=== PATIENT | male | born 1930 | race Caucasian/White ===

== ENCOUNTER 2019-09-05 17:38 | Inpatient (IN) | payer BC, OTHER ==
--- NOTE | 2019-09-05 18:30 | PDOC ---
History of Present Illness - General Chief Complaint: Altered Mental Status Stated Complaint: ALTERED MENTAL STATUS,FALL Time Seen by Provider: 09/05/19 18:17 History Source: Patient Exam Limitations: No Limitations - History of Present Illness Initial Comments: 09/05/19 21:58 88 yo M with a hx of CAD (s/p CABG, AV replacement, stent), atrial fibrillation (on warfarin), DM, HTN, CVA ("years ago"; unknown residual deficits) and HLD presents to the emergency department with AMS per the daughter. Per the daughter , the patient is normally aware of his surroundings, alert and oriented x3, and conversive. Per the daughter, the patient had an unwitnessed fall on Thursday. The patient remembers the fall and denies LOC, but endorses hitting his head. Per the daughter, the patient has been acting "more spaced out" since the fall, confused to his surroundings, and is unusually more agitated. He was seeing images of his daughter when she wasnt there today. Per the patient, he denies pain. Denies the following: fever, chills, nausea, vomiting, ears/nose/throat pain, chest pain, SOB, abdominal pain, dysuria, hematuria, diarrhea, and leg pain. Allergies: NKDA Past History - Past Medical History Allergies/Adverse Reactions: Allergies Allergy/AdvReac Type Severity Reaction Status Date / Time No Known Drug Allergies Allergy Verified 07/25/13 10:22 Home Medications: Ambulatory Orders Simvastatin [Zocor] 40 mg PO DAILY 03/11/13 Amiodarone HCl [Cordarone -] 200 mg PO DAILY #0 tablet 07/26/13 Aspirin [Aspirin EC] 81 mg PO DAILY #0 tablet.dr 07/26/13 Furosemide [Lasix -] 40 mg PO DAILY #0 tablet 07/26/13 Metoprolol Succinate [Toprol XL -] 100 mg PO DAILY #0 tab.sr.24h 07/26/13 Warfarin Na [Coumadin -] 0 mg PO UTDICT #0 tablet 07/26/13 Anemia: No Asthma: No Cancer: No Cardiac Disorders: Yes (ANGIOPLASTY WITH STENT 8 YRS AGO) CVA: Yes (2002) COPD: No CHF: (aortic valve replacement) Dementia: No Diabetes: No GI Disorders: No Disorders: Yes (renal stones) HTN: Yes Hypercholesterolemia: Yes Liver Disease: No Seizures: No Thyroid Disease: No - Surgical History Abdominal Surgery: Yes (HERNIA REPAIR X 2) Appendectomy: No Cardiac Surgery: Yes (STENT 2004) Cholecystectomy: No Lung Surgery: No Neurologic Surgery: No Orthopedic Surgery: Yes (RUPTURED ACHILLES TENDON, LEFT) - Immunization History Td Vaccination: Yes TDAP Vaccination: Yes Immunization Up to Date: Yes - Psycho Social/Smoking Cessation Hx Smoking Status: Yes Smoking History: Never smoked Years of Tobacco Use: 0 Have you smoked in the past 12 months: No Number of Cigarettes Smoked Daily: 0 If you are a former smoker, when did you quit?: Over 50 years ago Cigars Per Day: 0 Information on smoking cessation initiated: No 'Breaking Loose' booklet given: 12/23/11 Hx Alcohol Use: No Drug/Substance Use Hx: No Substance Use Type: None Hx Substance Use Treatment: No Review of Systems - Review of Systems Able to Perform ROS?: Yes Is the patient limited Setswana proficient: No Constitutional: No: Chills, Diaphoresis, Fever, Weakness HEENTM: No: Eye Pain, Ear Pain, Nose Pain, Throat Pain, Mouth Pain Respiratory: No: Cough, Shortness of Breath, Hemoptysis Cardiac (ROS): No: Chest Pain, Lightheadedness, Palpitations, Syncope ABD/GI: No: Constipated, Diarrhea, Nausea, Rectal Bleeding, Vomiting, Tarry Stools : No: Burning, Dysuria, Hematuria, Incontinence Musculoskeletal: Yes: Back Pain (chronic back pain lower region), Joint Pain ( knees bilaterally; chronic). No: Neck Pain Integumentary: No: Bruising, Erythema, Rash Neurological: No: Headache, Numbness, Tingling, Tremors Psychiatric: No: Change in Appetite Endocrine: No: Unexplained Weight Gain Hematologic/Lymphatic: No: Anemia *Physical Exam - Vital Signs Last Vital Signs Temp Pulse Resp BP Pulse Ox 100.4 F H 94 H 16 137/96 92 L 09/05/19 18:08 09/05/19 17:40 09/05/19 17:40 09/05/19 17:40 09/05/19 17:40 - Physical Exam General Appearance: Yes: Nourished, Appropriately Dressed. No: Apparent Distress, Intoxicated HEENT: positive: EOMI, TROY, Normal Voice, Symmetrical, Pharynx Normal, Hearing Grossly Normal. negative: Pale Conjunctivae, Scleral Icterus (R), Scleral Icterus (L), Muffled/Hoarse voice, Pharyngeal Erythema, Tonsillar Exudate, Tonsillar Erythema, Nasal Congestion, Rhinorrhea, Sinus Tenderness, Excessive drooling Neck: positive: Trachea midline, Supple. negative: Tender, Lymphadenopathy (R) , Lymphadenopathy (L), Tender lateral, Tender midline Respiratory/Chest: positive: Lungs Clear, Normal Breath Sounds. negative: Chest Tender, Respiratory Distress, Accessory Muscle Use, Rhonchi, Stridor, Wheezing Cardiovascular: positive: Regular Rate, S1, S2, Irregularly Irregular. negative : Systolic Murmur Gastrointestinal/Abdominal: positive: Normal Bowel Sounds, Flat, Soft, Other ( hernia present and reducible. also noted surgical scar from CABG. right erythematous rash ). negative: Tender Lymphatic: negative: Adenopathy Musculoskeletal: positive: Normal Inspection. negative: CVA Tenderness, Vertebral Tenderness Extremity: positive: Normal Capillary Refill, Normal Range of Motion, Pelvis Stable. negative: Normal Inspection (2+ pitting edema bilaterally. stable per patient's daughter), Tender Integumentary: positive: Normal Color, Dry, Warm Neurologic: positive: guidance consultant II-XII NML intact, Alert, Motor Strength 5/5. negative: Fully Oriented (oriented to self and place), Normal Mood/Affect ( agitated), EOM Palsy, Sensory Deficit ED Treatment Course - LABORATORY CBC & Chemistry Diagram: 09/05/19 18:32 09/05/19 18:32 Medical Decision Making - Medical Decision Making 09/06/19 00:14 88 yo M with a hx of CAD (s/p CABG, AV replacement, stent), atrial fibrillation (on warfarin), DM, HTN, CVA ("years ago"; unknown residual deficits) and HLD presents to the emergency department with AMS per the daughter Initial vitals: Initial Vital Signs Temp Pulse Resp BP Pulse Ox 99.4 F 94 H 16 137/96 92 L 09/05/19 17:40 09/05/19 17:40 09/05/19 17:40 09/05/19 17:40 09/05/19 17:40 Work up: patient presents with low grade fever with AMS. The patient denies headache and does not have nuchal rigidity. meningitis unlikely. patient denies symptoms. Patient is on warfarin with fall that resulted in head trauma, will need to rule out intracranial bleed. Will order spetic rule out and ascertain source with PNA and UTI as highest likelihoods. Laboratory Tests 09/05/19 09/05/19 09/05/19 18:30 18:30 18:30 WBC RBC Hgb Hct MCV MCH MCHC RDW Plt Count MPV Absolute Neuts (auto) Neutrophils % Lymphocytes % Monocytes % Eosinophils % Basophils % Nucleated RBC % PT with INR 32.60 H INR 2.73 H PTT (Actin FS) 45.5 H VBG pH POC VBG pCO2 POC VBG pO2 VBG HCO3 VBG O2 Sat (Mc) VBG Base Excess Sodium Potassium Chloride Carbon Dioxide Anion Gap BUN Creatinine Est GFR (CKD-EPI)AfAm Est GFR (CKD-EPI)NonAf Random Glucose Lactic Acid 1.6 Calcium Total Bilirubin AST ALT Alkaline Phosphatase Ammonia Creatine Kinase Troponin I Total Protein Albumin Vitamin B12 TSH 1.44 Urine Color Urine Appearance Urine pH Ur Specific [place] Urine Protein Urine Glucose (UA) Urine Ketones Urine Blood Urine Nitrite Urine Bilirubin Urine Urobilinogen Ur Leukocyte Esterase Urine WBC (Auto) Urine RBC (Auto) Urine Casts (Auto) U Epithel Cells (Auto) Urine Bacteria (Auto) 09/05/19 09/05/19 09/05/19 18:32 18:32 18:35 WBC 10.0 RBC 5.32 Hgb 15.4 Hct 46.2 D MCV 86.8 MCH 29.0 MCHC 33.4 RDW 14.3 D Plt Count 178 D MPV 7.6 Absolute Neuts (auto) 8.1 H Neutrophils % 81.2 Lymphocytes % 8.1 D Monocytes % 10.0 D Eosinophils % 0.0 D Basophils % 0.7 Nucleated RBC % 0 PT with INR INR PTT (Actin FS) VBG pH 7.41 POC VBG pCO2 47.0 POC VBG pO2 < 49 H VBG HCO3 29.1 H VBG O2 Sat (Mc) 38.7 L VBG Base Excess 4.0 H Sodium 136 Potassium 4.0 Chloride 101 Carbon Dioxide 29 Anion Gap 7 L BUN 14.0 Creatinine 1.3 Est GFR (CKD-EPI)AfAm 56.86 Est GFR (CKD-EPI)NonAf 49.06 Random Glucose 100 Lactic Acid Calcium 9.1 Total Bilirubin 4.4 H AST 23 ALT 13 Alkaline Phosphatase 105 Ammonia Creatine Kinase 126 Troponin I 0.06 H Total Protein 7.1 Albumin 4.1 Vitamin B12 312 TSH Urine Color Urine Appearance Urine pH Ur Specific [place] Urine Protein Urine Glucose (UA) Urine Ketones Urine Blood Urine Nitrite Urine Bilirubin Urine Urobilinogen Ur Leukocyte Esterase Urine WBC (Auto) Urine RBC (Auto) Urine Casts (Auto) U Epithel Cells (Auto) Urine Bacteria (Auto) 09/05/19 09/05/19 09/05/19 20:16 22:10 22:10 WBC RBC Hgb Hct MCV MCH MCHC RDW Plt Count MPV Absolute Neuts (auto) Neutrophils % Lymphocytes % Monocytes % Eosinophils % Basophils % Nucleated RBC % PT with INR INR PTT (Actin FS) VBG pH POC VBG pCO2 POC VBG pO2 VBG HCO3 VBG O2 Sat (Mc) VBG Base Excess Sodium Potassium Chloride Carbon Dioxide Anion Gap BUN Creatinine Est GFR (CKD-EPI)AfAm Est GFR (CKD-EPI)NonAf Random Glucose Lactic Acid Calcium Total Bilirubin AST ALT Alkaline Phosphatase Ammonia 24.50 Creatine Kinase Troponin I 0.07 H Total Protein Albumin Vitamin B12 TSH Urine Color Yellow Urine Appearance Clear Urine pH 8.0 D Ur Specific [place] 1.014 Urine Protein 1+ H Urine Glucose (UA) Negative Urine Ketones Negative Urine Blood Trace Urine Nitrite Negative Urine Bilirubin Negative Urine Urobilinogen 1.0 Ur Leukocyte Esterase Negative Urine WBC (Auto) 0 Urine RBC (Auto) 11 Urine Casts (Auto) 0 U Epithel Cells (Auto) 0.1 Urine Bacteria (Auto) 0.5 09/05/19 22:10 WBC RBC Hgb Hct MCV MCH MCHC RDW Plt Count MPV Absolute Neuts (auto) Neutrophils % Lymphocytes % Monocytes % Eosinophils % Basophils % Nucleated RBC % PT with INR INR PTT (Actin FS) VBG pH POC VBG pCO2 POC VBG pO2 VBG HCO3 VBG O2 Sat (Mc) VBG Base Excess Sodium Potassium Chloride Carbon Dioxide Anion Gap BUN Creatinine Est GFR (CKD-EPI)AfAm Est GFR (CKD-EPI)NonAf Random Glucose Lactic Acid 1.3 Calcium Total Bilirubin AST ALT Alkaline Phosphatase Ammonia Creatine Kinase Troponin I Total Protein Albumin Vitamin B12 TSH Urine Color Urine Appearance Urine pH Ur Specific [place] Urine Protein Urine Glucose (UA) Urine Ketones Urine Blood Urine Nitrite Urine Bilirubin Urine Urobilinogen Ur Leukocyte Esterase Urine WBC (Auto) Urine RBC (Auto) Urine Casts (Auto) U Epithel Cells (Auto) Urine Bacteria (Auto) Patient's troponin is positive with repeat with slight rise (0.06-->0.07) EKG shows atrial fibrillation with TW flattening in III. No ST elevation or depression noted Patient's UA and CXR within normal limits. CT head and cervical spine negative for acute process Patient has a remote history of abdomen and pelvis CT showing heterogenity with possible lesions on liver; ammonia was obtained and was within normal limits. Vitamin B12 within normal limits. Patient will have an abdomen and pelvis due to increase in total bilirubin s/p cholecystectomy. Will rule out choledocholithiasis with possible infection throughout the biliary tree ( cholangitis). Patient was signed out to Dr. Jacques for further management. Discharge - Discharge Information Problems reviewed: Yes Clinical Impression/Diagnosis: AMS (altered mental status) - Follow up/Referral Referrals: Roxanna Moore MD [Primary Care Provider] - - Patient Discharge Instructions - Post Discharge Activity
--- NOTE | 2019-09-05 18:56 | PDOC ---
Documentation entered by Anai Saenz SCRIBE, acting as scribe for Peri Ocampo MD. Peri Ocampo MD: This documentation has been prepared by the Letty back Nirvannie, SCRIBE, under my direction and personally reviewed by me in its entirety. I confirm that the documentation accurately reflects all work, treatment, procedures, and medical decision making performed by me. Attending Attestation - Resident Resident Name: Obi Jose - ED Attending Attestation I have performed the following: I have examined & evaluated the patient, The case was reviewed & discussed with the resident (a), I agree w/resident's findings & plan, Exceptions are as noted - HPI HPI: 09/05/19 18:53 88-year-old male brought in by daughter for altered mental status. he fell on Thursday and has become increasingly confused since then. He does take Coumadin. - Physicial Exam PE: 09/05/19 19:04 Head is normocephalic atraumatic, there is no appreciable lacerations or abrasions or hematomas noted Face no abrasions or lacerations Neck patient does not complain of any midline cervical tenderness upon palpation Lungs clear to auscultation bilaterally CVS regular rate rhythm S1-S2 Abdomen soft nontender,There is a reducible hernia Extremities +1 pitting edema Skin no vesicles, no abscesses But there is a fungal appearing rash on the right lower quadrant Neuro he has 5 out of 5 bilateral motor strength patient is a very poor historian, confused but he is not somnolent - Medical Decision Making 09/05/19 19:41 88-year-old male who fell on Thursday and has been becoming more confused according to his daughter He has no obvious external head trauma He does take Coumadin Concern for TBI, subdural hemorrhage Labs including INR, CAT scan of the head EKG CBC comp, urine 09/05/19 22:30 CAT scan of the head does not show any acute intracranial pathology Troponin is 0.06 CBC is unremarkable Chemistries are unremarkable ,exception of his t bilirubin which is 4.4 His INR is 2,73 09/05/19 22:30 09/05/19 23:59 09/06/19 01:18 Daughter is concerned because this person is talking about seeing people that are not there, having visual hallucinations will admit for continued evaluation
[2019-09-05 19:06] LABS: VENOUS PH 7.41 (7.31-7.41)
[2019-09-05 19:13] LABS: BASO % 0.7 % (0-2.0); HEMATOCRIT 46.2 % (35.4-49); HEMOGLOBIN 15.4 GM/dL (11.7-16.9); LYMPH % 8.1 % (8-40); MCHC 33.4 g/dl (32.0-35.9); MEAN CELL VOLUME 86.8 fl (80-96); MEAN PLT VOLUME 7.6 fl (7.5-11.1); NEUT % 81.2 % (42.8-82.8); PLATELET COUNT 178 K/MM3 (134-434); RBC 5.32 M/mm3 (4.00-5.60); RDW 14.3 % (11.9-15.9)
[2019-09-05 19:35] LABS: VENOUS PO2 < 49 mmHg (28-48)
[2019-09-05 19:49] LABS: INR 2.73 (0.83-1.09); PROTHROMBIN TIME (PATIENT) 32.6 SEC (9.7-13.0)
[2019-09-05 19:52] LABS: ACTIVATED PTT 45.5 SECONDS (25.2-36.5)
[2019-09-05 20:15] LABS: ALBUMIN 4.1 g/dl (3.4-5.0); BILIRUBIN,TOTAL 4.4 mg/dL (0.2-1); CALCIUM 9.1 mg/dL (8.5-10.1); CREATININE 1.3 mg/dL (0.55-1.3); TOT PROT 7.1 g/dl (6.4-8.2)
[2019-09-05 21:02] LABS: EPI CELLS 0.1 /HPF (0-5/HPF); HYALINE CASTS 0 /lpf (0-8); URINE APPEARANCE CLEAR; URINE BACTERIA 0.5 /hpf (NEGATIVE); URINE BILIRUBIN NEGATIVE (NEGATIVE); URINE COLOR YELLOW; URINE GLUCOSE (UA) NEGATIVE (NEGATIVE); URINE KETONE NEGATIVE (NEGATIVE); URINE LEUK ESTERASE NEGATIVE (NEGATIVE); URINE NITRITE NEGATIVE (NEGATIVE); URINE PROTEIN 1+ (NEGATIVE); URINE RBC 11 /hpf (0-4); URINE WBC 0 /hpf (0-5)
[2019-09-05] MEDS ORDERED: oxyCODONE HCL 5 MG TABLET PO ONE (22:05)
[2019-09-05] MEDS ORDERED: ATORVASTATIN CA 40 MG TABLET (FP) PO ONE (22:05)
[2019-09-05] MEDS ORDERED: WARFARIN NA 5 MG TABLET (UD) PO ONE (22:05)
[2019-09-05] MEDS ORDERED: oxyCODONE HCL 5 MG TABLET ONE (22:09)
[2019-09-05] MEDS ORDERED: WARFARIN NA 5 MG TABLET (UD) ONE (22:09)
[2019-09-05] MEDS ORDERED: ATORVASTATIN CA 40 MG TABLET (FP) ONE (22:10)
--- NOTE | 2019-09-06 00:09 | PDOC ---
*Physical Exam - Vital Signs Last Vital Signs Temp Pulse Resp BP Pulse Ox 98.5 F 100 H 14 145/88 95 09/05/19 19:10 09/05/19 19:10 09/05/19 19:10 09/05/19 19:10 09/05/19 19:10 ED Treatment Course - LABORATORY CBC & Chemistry Diagram: 09/09/19 06:55 09/09/19 06:55 - ADDITIONAL ORDERS Additional order review: Laboratory Results 09/05/19 09/05/19 09/05/19 22:10 22:10 22:10 PT with INR INR PTT (Actin FS) VBG pH POC VBG pCO2 POC VBG pO2 VBG HCO3 VBG O2 Sat (Mc) VBG Base Excess Sodium Potassium Chloride Carbon Dioxide Anion Gap BUN Creatinine Est GFR (CKD-EPI)AfAm Est GFR (CKD-EPI)NonAf Random Glucose Lactic Acid 1.3 Calcium Total Bilirubin AST ALT Alkaline Phosphatase Ammonia 24.50 Creatine Kinase Troponin I 0.07 H Total Protein Albumin Vitamin B12 TSH Urine Color Urine Appearance Urine pH Ur Specific [place] Urine Protein Urine Glucose (UA) Urine Ketones Urine Blood Urine Nitrite Urine Bilirubin Urine Urobilinogen Ur Leukocyte Esterase Urine WBC (Auto) Urine RBC (Auto) Urine Casts (Auto) U Epithel Cells (Auto) Urine Bacteria (Auto) 09/05/19 09/05/19 09/05/19 20:16 18:35 18:32 PT with INR INR PTT (Actin FS) VBG pH 7.41 POC VBG pCO2 47.0 POC VBG pO2 < 49 H VBG HCO3 29.1 H VBG O2 Sat (Mc) 38.7 L VBG Base Excess 4.0 H Sodium 136 Potassium 4.0 Chloride 101 Carbon Dioxide 29 Anion Gap 7 L BUN 14.0 Creatinine 1.3 Est GFR (CKD-EPI)AfAm 56.86 Est GFR (CKD-EPI)NonAf 49.06 Random Glucose 100 Lactic Acid Calcium 9.1 Total Bilirubin 4.4 H AST 23 ALT 13 Alkaline Phosphatase 105 Ammonia Creatine Kinase 126 Troponin I 0.06 H Total Protein 7.1 Albumin 4.1 Vitamin B12 312 TSH Urine Color Yellow Urine Appearance Clear Urine pH 8.0 D Ur Specific [place] 1.014 Urine Protein 1+ H Urine Glucose (UA) Negative Urine Ketones Negative Urine Blood Trace Urine Nitrite Negative Urine Bilirubin Negative Urine Urobilinogen 1.0 Ur Leukocyte Esterase Negative Urine WBC (Auto) 0 Urine RBC (Auto) 11 Urine Casts (Auto) 0 U Epithel Cells (Auto) 0.1 Urine Bacteria (Auto) 0.5 09/05/19 09/05/19 09/05/19 18:30 18:30 18:30 PT with INR 32.60 H INR 2.73 H PTT (Actin FS) 45.5 H VBG pH POC VBG pCO2 POC VBG pO2 VBG HCO3 VBG O2 Sat (Mc) VBG Base Excess Sodium Potassium Chloride Carbon Dioxide Anion Gap BUN Creatinine Est GFR (CKD-EPI)AfAm Est GFR (CKD-EPI)NonAf Random Glucose Lactic Acid 1.6 Calcium Total Bilirubin AST ALT Alkaline Phosphatase Ammonia Creatine Kinase Troponin I Total Protein Albumin Vitamin B12 TSH 1.44 Urine Color Urine Appearance Urine pH Ur Specific [place] Urine Protein Urine Glucose (UA) Urine Ketones Urine Blood Urine Nitrite Urine Bilirubin Urine Urobilinogen Ur Leukocyte Esterase Urine WBC (Auto) Urine RBC (Auto) Urine Casts (Auto) U Epithel Cells (Auto) Urine Bacteria (Auto) 09/05/19 18:32 RBC 5.32 MCV 86.8 MCHC 33.4 RDW 14.3 D MPV 7.6 Neutrophils % 81.2 Lymphocytes % 8.1 D Monocytes % 10.0 D Eosinophils % 0.0 D Basophils % 0.7 - Medications Given in the ED: ED Medications Discontinued Medications Generic Name Dose Route Start Last Admin Trade Name Brunoq PRN Reason Stop Dose Admin Atorvastatin Calcium 40 mg 09/05/19 22:05 09/05/19 22:17 Lipitor - PO 09/05/19 22:06 40 mg ONCE ONE Administration Oxycodone HCl 5 mg 09/05/19 22:05 09/05/19 22:17 Roxicodone - PO 09/05/19 22:06 5 mg ONCE ONE Administration Warfarin Sodium 5 mg 09/05/19 22:05 09/05/19 22:17 Coumadin - PO 09/05/19 22:06 5 mg NOW ONE Administration Medical Decision Making - Medical Decision Making 09/06/19 00:[address] Jose: 88 yo M with a hx of CAD (s/p CABG, AV replacement, stent), atrial fibrillation (on warfarin), DM, HTN, CVA ("years ago"; unknown residual deficits) and HLD presents to the emergency department with AMS per the daughter. Unwitnessed fall on Thursday. - CT head neg - Labs showing elevated TBili [] f/u CT A/P IOC read [] admit for AMS 09/06/19 00:58 CT A/P IOC: FINDINGS: Lower thorax: Mild eventration of the left hemidiaphragm. Subsegmental atelectasis in both lower lobes. Coronary artery calcifications. Liver and biliary tree: No suspicious hepatic lesions. Normal contour of the liver. Gallbladder: Prior cholecystectomy Spleen: Normal Pancreas: Normal Adrenal glands: Normal Kidneys and ureters: No hydronephrosis or urolithiasis. Urinary Bladder: Unremarkable Gastrointestinal tract: No bowel wall thickening or evidence of obstruction. Small hiatal hernia Peritoneal cavity: No free fluid. Reproductive Organs: Unremarkable Vasculature: The aorta and proximal branch arteries are patent.Atherosclerotic vascular calcification. Abdominal aortic aneurysm measuring 3.6 cm Lymph nodes: Enlarged bilateral iliac chain lymph nodes measuring up to 1 cm in short axis dimension; these are nonspecific. Mildly enlarged bilateral pelvic sidewall lymph nodes measuring up to 7 mm in short axis dimension. Abdominal wall: Multiple ventral hernias 2 of which contain segments of bowel. No evidence of strangulation or obstruction. Musculoskeletal: No acute fracture. Severe degenerative changes in the lumbar spine. Grade 1 anterolisthesis of L4 on L5. IMPRESSION: No evidence of acute infectious or inflammatory process in the abdomen or pelvis. Abdominal aortic aneurysm measuring 3.6 cm Enlarged bilateral iliac chain and pelvic sidewall lymph nodes. These are nonspecific. Recommend correlation with serum PSA and digital rectal exam. THIS DOCUMENT HAS BEEN ELECTRONICALLY SIGNED Twan Whitehead MD 09/06/2019 00:48 EST 09/06/19 01:04 admit // admitted Discharge - Discharge Information Problems reviewed: Yes Clinical Impression/Diagnosis: AMS (altered mental status) Qualifiers: Altered mental status type: unspecified Qualified Code(s): R41.82 - Altered mental status, unspecified Condition: Improved Disposition: HOME - Admission Yes - Follow up/Referral - Patient Discharge Instructions - Post Discharge Activity
--- NOTE | 2019-09-06 01:27 | PN ---
Teaching Attending Note Name of Resident: Mehrdad Go ATTENDING PHYSICIAN STATEMENT I saw and evaluated the patient. I reviewed the resident's note and discussed the case with the resident. I agree with the resident's findings and plan as documented. SUBJECTIVE: 88 yo M with a hx of CAD, s/p CABG, AVR, afib (on warfarin), DM, HTN, CVA presents with AMS as per the daughter. Per the daughter, the patient is normally aware of his surroundings, alert and oriented x3, and Able to converse and give a good history. Patient says he has had multiple falls in the preceding weeks with most recent fall on 09/03/2018. The patient remembers the fall, possible trauma to head, denied LOC. Patient reports that he has bovine aortic valve replacement. Last Vital Signs Temp Pulse Resp BP Pulse Ox 98.5 F 100 H 14 145/88 95 09/05/19 19:10 09/05/19 19:10 09/05/19 19:10 09/05/19 19:10 09/05/19 19:10 GENERAL: Well developed, well nourished. Awake and alert. No acute distress. HEENT: Normocephalic, atraumatic. PERRLA, EOMI. No conjunctival pallor. Sclera are non- icteric. Moist mucous membranes. Oropharynx is clear. NECK: Supple. Full ROM. No JVD. Carotid pulses 2+ and symmetric, without bruits. No thyromegaly. No lymphadenopathy. CARDIOVASCULAR: Regular rate and rhythm. No murmurs, rubs, or gallops. Distal pulses are 2+ and symmetric. PULMONARY: No evidence of respiratory distress. Lungs clear to auscultation bilaterally. No wheezing, rales or rhonchi. ABDOMINAL: Soft. Non-tender. Non-distended. No rebound or guarding. No organomegaly. Normoactive bowel sounds. Reducible ventral abdominal hernia appreciated MUSCULOSKELETAL Normal range of motion at all joints. No bony deformities or tenderness. No CVA tenderness. EXTREMITIES: No cyanosis. No clubbing. No edema. No calf tenderness. SKIN: Warm and dry. Normal capillary refill. No rashes. No jaundice. NEUROLOGICAL: Alert, awake, appropriate. Cranial nerves 2-12 intact. No deficits to light touch and temperature in face, upper extremities and lower extremities. No motor deficits in the in face, upper extremities and lower extremities. Normoreflexic in the upper and lower extremities. Normal speech. Toes are down- going bilaterally. Gait is normal without ataxia. PSYCHIATRIC: Cooperative. Good eye contact. Appropriate mood and affect. Abnormal Lab Results 09/05/19 09/05/19 09/05/19 18:30 18:32 18:32 Absolute Neuts (auto) 8.1 H PT with INR 32.60 H INR 2.73 H PTT (Actin FS) 45.5 H POC VBG pO2 VBG HCO3 VBG O2 Sat (Mc) VBG Base Excess Anion Gap 7 L Total Bilirubin 4.4 H Troponin I 0.06 H Urine Protein 09/05/19 09/05/19 09/05/19 18:35 20:16 22:10 Absolute Neuts (auto) PT with INR INR PTT (Actin FS) POC VBG pO2 < 49 H VBG HCO3 29.1 H VBG O2 Sat (Mc) 38.7 L VBG Base Excess 4.0 H Anion Gap Total Bilirubin Troponin I 0.07 H Urine Protein 1+ H Imaging studies reviewed CT head and cervical spine negative for acute process Abdomen pelvis CTAbdominal aortic aneurysm measuring 3.6 cm ASSESSMENT AND PLAN: #S/p fall, ams-r/o subdural hematoma. One-time fever of 100.4 Fahrenheit noted in the emergency room. At this time low suspicious of meningitis however if persistent fevers and altered mentation would consider to do lumbar puncture to rule out meningitis or encephalitis. med/surg neuro checks fall precautions TSH, vitamin B12, RPR Fall precautions, bed rest, physical therapy evaluation would repeat head ct in 24hrs to r/o subdural hematoma #Elevated T bilino abdominal pain, uncertain etiology Send fractionated bilirubin with next chemistry #Fever, tachycardia Flu swab Send blood cultures #CAD status post CABG Statin Beta-shaan #Troponinemiasuspect demand ischemia Trend troponin #Diabetes mellitus NovoLog sliding scale, basal insulin, A1c, diabetic diet #A. fib on anticoagulationINR noted to be therapeutic #Aortic valve replacementuncertain if bioprosthetic or mechanical Obtain medical records from eeg technologist in morning #Hypertension Salt restriction #Abdominal aortic aneurysm3.7 cm Would follow-up in vascular clinic as an outpatient
--- NOTE | 2019-09-06 02:11 | HP ---
CHIEF COMPLAINT: fall PCP: Dr. Roxanna Moore HISTORY OF PRESENT ILLNESS: Migel Pantoja is an 88 year old male with a past medical history of CAD (s/p CABG, aortic valve replacement ?type, stent), afib (on coumadin), DM, HTN, CVA, HLD, spinal stenosis, who had multiple recent falls at home and brought to the ED by his daughter for further evaluation. As per ED who obtained history from daughter the patient was noted to have altered mental status where patient was more not alert, agitated, and having some hallucinations and was having increased amounts of falls including head hits. On exam, the patient was alert and oriented x3 and recalled the events of his most recent fall where he stated he felt lightheaded, felt his legs give out and fell hitting his head. He denied loss of consciousness or prodromal events such as palpitations, chest pain, shortness of breath, nausea, visual changes. Denied recent illnesses, sick contacts, or travel. On interview, denied abd pain, nausea, vomiting, chest pain, shortness of breath, fever, chills, dizziness, lightheadedness, numbness, tingling, focal weakness, cough. Endorsed constipation and chronic back pain. On subsequent examination, patient had episode of repeated questioning about whether he will receive pain medication. ER course was notable for: (1) Tmax: 100.4 (2) INR 2.73, T bili 4.4, TSH 1.44 (3) CT abd/pelvis No evidence of acute infectious or inflammatory process in the abdomen or pelvis. Abdominal aortic aneurysm measuring 3.6 cm Enlarged bilateral iliac chain and pelvic sidewall lymph nodes. These are nonspecific. Recommend correlation with serum PSA and digital rectal exam. 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 Allergies No Known Drug Allergies Allergy (Verified 07/25/13 10:22) HOME MEDICATIONS: Home Medications Medication Instructions Recorded Simvastatin [Zocor] 40 mg PO DAILY 07/19/13 Amiodarone HCl [Cordarone -] 200 mg PO DAILY #0 tablet 07/26/13 Aspirin [Aspirin EC] 81 mg PO DAILY #0 tablet.dr 07/26/13 Furosemide [Lasix -] 40 mg PO DAILY #0 tablet 07/26/13 Metoprolol Succinate [Toprol XL -] 100 mg PO DAILY #0 tab.sr.24h 07/26/13 Warfarin Na [Coumadin -] 0 mg PO UTDICT #0 tablet 07/26/13 REVIEW OF SYSTEMS CONSTITUTIONAL: Absent: fever, chills, diaphoresis, generalized weakness, malaise, loss of appetite, weight change HEENT: Absent: rhinorrhea, nasal congestion, throat pain, throat swelling, difficulty swallowing, visual changes CARDIOVASCULAR: Absent: chest pain, syncope, palpitations, irregular heart rate, lightheadedness , peripheral edema RESPIRATORY: Absent: cough, shortness of breath, dyspnea with exertion, orthopnea, wheezing, GASTROINTESTINAL: constipation Absent: abdominal pain, abdominal distension, nausea, vomiting, diarrhea, melena, hematochezia GENITOURINARY: Absent: dysuria, frequency, urgency, hesitancy, hematuria, flank pain, MUSCULOSKELETAL: back pain Absent: myalgia, arthralgia, joint swelling, neck pain SKIN: Absent: rash, itching, pallor HEMATOLOGIC/IMMUNOLOGIC: Absent: easy bleeding, easy bruising, lymphadenopathy, frequent infections ENDOCRINE: Absent: unexplained weight gain, unexplained weight loss, heat intolerance, cold intolerance NEUROLOGIC: unsteady gait Absent: headache, focal weakness or paresthesias, dizziness, seizure, mental status changes, PSYCHIATRIC: Absent: anxiety, depression, suicidal or homicidal ideation, hallucinations. PHYSICAL EXAMINATION Vital Signs - 24 hr 09/05/19 09/05/19 09/05/19 17:40 18:08 19:10 Temperature 99.4 F 100.4 F H 98.5 F Pulse Rate 94 H Pulse Rate [ 100 H Right Radial] Respiratory 16 14 Rate Blood Pressure 137/96 Blood Pressure 145/88 [Left Arm] O2 Sat by Pulse 92 L 95 Oximetry (%) GENERAL: Awake, alert, and fully oriented, in no acute distress. HEAD: Normal with no signs of trauma. EYES: Pupils equal, round and reactive to light, extraocular movements intact, sclera anicteric, conjunctiva clear. EARS, NOSE, THROAT:Oropharynx clear without exudates. Moist mucous membranes. NECK: Normal range of motion, supple without lymphadenopathy, JVD. LUNGS: Breath sounds equal, clear to auscultation bilaterally. No wheezes, and no crackles. No accessory muscle use. HEART: Normal rate and irregular rhythm, normal S1 and S2 without murmur, rub. ABDOMEN: Soft, nontender, not distended, normoactive bowel sounds, no guarding, no rebound, no masses. MUSCULOSKELETAL: Difficulty sitting up secondary to pain UPPER EXTREMITIES: 2+ pulses, warm, well-perfused. No cyanosis. No clubbing. No peripheral edema. LOWER EXTREMITIES: 2+ pulses, warm, well-perfused. No calf tenderness. No peripheral edema. NEUROLOGICAL: Cranial nerves II-XII intact. 5/5 muscle strength upper and lower extremities bilaterally. Sensation intact to gross touch bilaterally. PSYCHIATRIC: Cooperative. Good eye contact. SKIN: Warm, dry, normal turgor, no rashes or lesions noted, normal capillary refill. Laboratory Results - last 24 hr 09/05/19 09/05/19 09/05/19 18:30 18:30 18:30 WBC RBC Hgb Hct MCV MCH MCHC RDW Plt Count MPV Absolute Neuts (auto) Neutrophils % Lymphocytes % Monocytes % Eosinophils % Basophils % Nucleated RBC % PT with INR 32.60 H INR 2.73 H PTT (Actin FS) 45.5 H VBG pH POC VBG pCO2 POC VBG pO2 VBG HCO3 VBG O2 Sat (Mc) VBG Base Excess Sodium Potassium Chloride Carbon Dioxide Anion Gap BUN Creatinine Est GFR (CKD-EPI)AfAm Est GFR (CKD-EPI)NonAf Random Glucose Lactic Acid 1.6 Calcium Total Bilirubin AST ALT Alkaline Phosphatase Ammonia Creatine Kinase Troponin I Total Protein Albumin Vitamin B12 TSH 1.44 Urine Color Urine Appearance Urine pH Ur Specific [place] Urine Protein Urine Glucose (UA) Urine Ketones Urine Blood Urine Nitrite Urine Bilirubin Urine Urobilinogen Ur Leukocyte Esterase Urine WBC (Auto) Urine RBC (Auto) Urine Casts (Auto) U Epithel Cells (Auto) Urine Bacteria (Auto) 09/05/19 09/05/19 09/05/19 18:32 18:32 18:35 WBC 10.0 RBC 5.32 Hgb 15.4 Hct 46.2 D MCV 86.8 MCH 29.0 MCHC 33.4 RDW 14.3 D Plt Count 178 D MPV 7.6 Absolute Neuts (auto) 8.1 H Neutrophils % 81.2 Lymphocytes % 8.1 D Monocytes % 10.0 D Eosinophils % 0.0 D Basophils % 0.7 Nucleated RBC % 0 PT with INR INR PTT (Actin FS) VBG pH 7.41 POC VBG pCO2 47.0 POC VBG pO2 < 49 H VBG HCO3 29.1 H VBG O2 Sat (Mc) 38.7 L VBG Base Excess 4.0 H Sodium 136 Potassium 4.0 Chloride 101 Carbon Dioxide 29 Anion Gap 7 L BUN 14.0 Creatinine 1.3 Est GFR (CKD-EPI)AfAm 56.86 Est GFR (CKD-EPI)NonAf 49.06 Random Glucose 100 Lactic Acid Calcium 9.1 Total Bilirubin 4.4 H AST 23 ALT 13 Alkaline Phosphatase 105 Ammonia Creatine Kinase 126 Troponin I 0.06 H Total Protein 7.1 Albumin 4.1 Vitamin B12 312 TSH Urine Color Urine Appearance Urine pH Ur Specific [place] Urine Protein Urine Glucose (UA) Urine Ketones Urine Blood Urine Nitrite Urine Bilirubin Urine Urobilinogen Ur Leukocyte Esterase Urine WBC (Auto) Urine RBC (Auto) Urine Casts (Auto) U Epithel Cells (Auto) Urine Bacteria (Auto) 09/05/19 09/05/19 09/05/19 20:16 22:10 22:10 WBC RBC Hgb Hct MCV MCH MCHC RDW Plt Count MPV Absolute Neuts (auto) Neutrophils % Lymphocytes % Monocytes % Eosinophils % Basophils % Nucleated RBC % PT with INR INR PTT (Actin FS) VBG pH POC VBG pCO2 POC VBG pO2 VBG HCO3 VBG O2 Sat (Mc) VBG Base Excess Sodium Potassium Chloride Carbon Dioxide Anion Gap BUN Creatinine Est GFR (CKD-EPI)AfAm Est GFR (CKD-EPI)NonAf Random Glucose Lactic Acid Calcium Total Bilirubin AST ALT Alkaline Phosphatase Ammonia 24.50 Creatine Kinase Troponin I 0.07 H Total Protein Albumin Vitamin B12 TSH Urine Color Yellow Urine Appearance Clear Urine pH 8.0 D Ur Specific [place] 1.014 Urine Protein 1+ H Urine Glucose (UA) Negative Urine Ketones Negative Urine Blood Trace Urine Nitrite Negative Urine Bilirubin Negative Urine Urobilinogen 1.0 Ur Leukocyte Esterase Negative Urine WBC (Auto) 0 Urine RBC (Auto) 11 Urine Casts (Auto) 0 U Epithel Cells (Auto) 0.1 Urine Bacteria (Auto) 0.5 09/05/19 22:10 WBC RBC Hgb Hct MCV MCH MCHC RDW Plt Count MPV Absolute Neuts (auto) Neutrophils % Lymphocytes % Monocytes % Eosinophils % Basophils % Nucleated RBC % PT with INR INR PTT (Actin FS) VBG pH POC VBG pCO2 POC VBG pO2 VBG HCO3 VBG O2 Sat (Mc) VBG Base Excess Sodium Potassium Chloride Carbon Dioxide Anion Gap BUN Creatinine Est GFR (CKD-EPI)AfAm Est GFR (CKD-EPI)NonAf Random Glucose Lactic Acid 1.3 Calcium Total Bilirubin AST ALT Alkaline Phosphatase Ammonia Creatine Kinase Troponin I Total Protein Albumin Vitamin B12 TSH Urine Color Urine Appearance Urine pH Ur Specific [place] Urine Protein Urine Glucose (UA) Urine Ketones Urine Blood Urine Nitrite Urine Bilirubin Urine Urobilinogen Ur Leukocyte Esterase Urine WBC (Auto) Urine RBC (Auto) Urine Casts (Auto) U Epithel Cells (Auto) Urine Bacteria (Auto) EKG--> afib, T wave abnormalities in inferior leads, no ST segment changes, QTc 405 ASSESSMENT/PLAN: Migel Pantoja is an 88 year old male with a past medical history of CAD (s/p CABG, aortic valve replacement ?type, stent), afib (on coumadin), DM, HTN, CVA, HLD, spinal stenosis admitted for multiple falls. Multiple falls with head hit/?AMS - unclear etiology, no evidence of acute infection, patient currently AOx3 but on subsequent exam had questionable waxing and waning - head CT as above, can consider repeat head CT after 24 hours due to patient being on coumadin - on tramadol 50 q6h prn at home for pain, may be contributing to falls - orthostatics ordered - Utox ordered - RPR, B12 - TSH 1.44 - physical therapy - fall risk precautions - bedrest - neurochecks Fever - no clear source of infection - Blood/urine cultures - Abd/pelvis CT as above - UA negative - CXR without infiltrates - flu swab ordered - if has repeated fevers, low threshold to start antibiotics, and consider LP Elevated Bilirubin - abd/pelvis CT as above - repeat bilirubin with direct ordered - cholecystectomy many years prior Elevated tropnonins - no signs of ACS, no change in EKG from previous on record EKG - previous EKG noting afib, age indeterminate inferior infarct, nonspecific T wave changes in inferior and lateral leads - continue to trend troponins Afib - continue home coumadin - continue home metoprolol Hx of Aortic valve replacement - unclear if mechanical or bovine, will need records from chartered wealth manager to determine optimal coumadin dosing AAA noted on CT scan - will need outpatient vascular surgery follow up DM - BGM ACHS - ISS CKD - at baseline CRE - avoid nephrotoxins HTN - resume home metoprolol HLD - resume home Lipitor DVT PPx - on home coumadin FEN - no standing fluids - continue to monitor electrolytes and replete as necessary - sodium/diabetic diet Dispo - Admit to Med-surg - medications reconciled Family Medical History Family History: Denies Visit type - Emergency Visit Emergency Visit: Yes ED Registration Date: 09/05/19 Care time: The patient presented to the Emergency Department on the above date and was hospitalized for further evaluation of their emergent condition. - New Patient This patient is new to me today: Yes Date on this admission: 09/06/19 - Critical Care Critical Care patient: No
[2019-09-06] MEDS ORDERED: ACETAMINOPHEN 325 MG TABLET (FP) PO PRN (03:15)
[2019-09-06] MEDS: INSULIN SLIDING SCALE (NOVOLOG) 1 VIAL SQ SCH ×4 (07:04→22:27)
[2019-09-06 07:45] LABS: BASO % 0.6 % (0-2.0); EOS % 0.2 % (0-4.5); HEMATOCRIT 41.9 % (35.4-49); HEMOGLOBIN 14.1 GM/dL (11.7-16.9); LYMPH % 11.3 % (8-40); MCH 29.1 pg (25.7-33.7); MCHC 33.8 g/dl (32.0-35.9); MEAN CELL VOLUME 86.3 fl (80-96); MEAN PLT VOLUME 7.4 fl (7.5-11.1); MONO % 8.6 % (3.8-10.2); NEUT % 79.3 % (42.8-82.8); PLATELET COUNT 165 K/MM3 (134-434); RBC 4.86 M/mm3 (4.00-5.60); RDW 14.1 % (11.9-15.9); WHITE BLOOD COUNT 8.5 K/mm3 (4.0-10.0)
[2019-09-06 07:59] LABS: INR 2.93 (0.83-1.09)
[2019-09-06 08:26] LABS: ALBUMIN 3.6 g/dl (3.4-5.0); BILIRUBIN,TOTAL 4.3 mg/dL (0.2-1); CALCIUM 8.8 mg/dL (8.5-10.1); CREATININE 1.2 mg/dL (0.55-1.3); MAGNESIUM 2.2 mg/dL (1.8-2.4); PHOSPHOROUS 2.6 mg/dL (2.5-4.9); POTASSIUM 3.6 mmol/L (3.5-5.1); TOT PROT 6.5 g/dl (6.4-8.2)
--- NOTE | 2019-09-06 08:27 | HOSP ---
Subjective - Review of Symptoms Events since last encounter: Seen and examined in the ED. Pt requesting to leave the hospital. Becoming very agitated Musculoskeletal: Yes: Back Pain, Muscle Weakness Neurological: Yes: Confusion Physical Examination Vital Signs: Vital Signs Temperature 99.8 F H 09/06/19 07:10 Pulse Rate 87 09/06/19 07:10 Respiratory Rate 15 09/06/19 07:10 Blood Pressure 140/85 09/06/19 07:10 O2 Sat by Pulse Oximetry (%) 96 09/06/19 07:10 Constitutional: Yes: Well Nourished, No Distress, Calm Eyes: Yes: WNL, Conjunctiva Clear, EOM Intact HENT: Yes: WNL, Atraumatic, Normocephalic Neck: Yes: WNL, Supple, Trachea Midline Cardiovascular: Yes: WNL, Regular Rate and Rhythm Respiratory: Yes: WNL, Regular, CTA Bilaterally Gastrointestinal: Yes: WNL, Normal Bowel Sounds ...Rectal Exam: Yes: Deferred Renal/: Yes: WNL Breast(s): Yes: WNL Musculoskeletal: Yes: Muscle Weakness Extremities: Yes: WNL Edema: No Peripheral Pulses WNL: Yes Peripheral Pulses: Left Radial: 2+, Right Radial: 2+, Left Doralis Pedis: 2+, Right Dorsalis Pedis: 2+, Left Femoral: 2+, Right Femoral: 2+ Integumentary: Yes: WNL Neurological: Yes: Alert, Unsteady Gait, Weakness (to LE) ...Motor Strength: LLE, RLE (weakness) Psychiatric: Yes: Agitated Labs: CBC, BMP 09/06/19 07:04 09/06/19 07:04 Hospitalist Encounter Assessment: Pt with history of frequent falls. HCT negative. Pending PT evaluation. Spoke with daughter at bedside and states she has been caring for pt for 10 years and has been increasingly more difficult over past year. Requesting supportive care at home. Pt very agitated, begging duaghter to take him home. Neurogly consultation and NV evaluation requested. Given pt is on coumadin and had increased agitation and falls it is unsafe to discharge to home. SW assistance requested for home care Critical Care Total Critical Care Time (in minutes): 45 Critical Care Statement: The care of this patient involved high complexity decision making to prevent further life threatening deterioration of the patient 's condition and/or to evaluate & treat vital organ system(s) failure or risk of failure.
[2019-09-06] MEDS ORDERED: FUROSEMIDE 20 MG TABLET (FP) PO SCH (10:00)
[2019-09-06] MEDS: ASPIRIN 81 MG CHEWABLE TABLETS PO SCH (10:28)
[2019-09-06] MEDS ORDERED: traMADol HCL 50 MG TABLET ONE (10:29)
[2019-09-06] MEDS: traMADol HCL 50 MG TABLET PO PRN (10:30)
--- NOTE | 2019-09-06 12:34 | EKG ---
Test Reason : Blood Pressure : / mmHG Vent. Rate : 087 BPM Atrial Rate : 258 BPM P-R Int : 000 ms QRS Dur : 086 ms QT Int : 362 ms P-R-T Axes : 000 059 -21 degrees QTc Int : 435 ms ATRIAL FIBRILLATION NONSPECIFIC T WAVE ABNORMALITY ABNORMAL ECG Confirmed by MD CRISTIAN, YAYA ([id number]) on 09/06/2019 12:34:09 PM Referred By: Confirmed By:YAYA FOSTER MD
--- NOTE | 2019-09-06 12:40 | EKG ---
Test Reason : Blood Pressure : / mmHG Vent. Rate : 091 BPM Atrial Rate : 120 BPM P-R Int : 000 ms QRS Dur : 086 ms QT Int : 330 ms P-R-T Axes : 000 076 -15 degrees QTc Int : 405 ms ATRIAL FIBRILLATION NONSPECIFIC T WAVE ABNORMALITY ABNORMAL ECG Confirmed by MD CRISTIAN, YAYA ([id number]) on 09/06/2019 12:40:36 PM Referred By: Confirmed By:YAYA FOSTER MD
[2019-09-06] MEDS ORDERED: LIDOCAINE 5% TOPICAL PATCH ONE (16:13)
[2019-09-06] MEDS: LIDOCAINE 5% TOPICAL PATCH TP SCH (16:29)
[2019-09-06] MEDS ORDERED: WARFARIN NA 2.5 MG TABLET (FP) PO SCH (18:00)
[2019-09-06] MEDS: WARFARIN NA 2.5 MG TABLET (FP) PO SCH (18:38)
[2019-09-06] MEDS ORDERED: PIPERACILLIN/TAZOB 3.375 GM 3.375 GM in DEXTROSE 5%-WATER - 50 ML IVPB ONE (18:53)
[2019-09-06] MEDS ORDERED: VANCOMYCIN 1 GM in D5W (PRE-DOCKED) 1,000 MG/250 ML IVPB ONE (18:54)
--- NOTE | 2019-09-06 19:46 | CON.ID ---
Consult Consult Specialty:: infectious diseases Referred by:: Yuli Reason for Consultation:: gm positive bacteremia - History of Present Illness Chief Complaint: fall weakness History of Present Illness: 88 year old male with a past medical history of CAD (s/p CABG, aortic valve replacement stent), afib , DM, HTN, CVA, HLD, spinal stenosis, who had multiple recent falls at home and brought to the ED by his daughter for further evaluation. history from daughter the patient was noted to have altered mental status where patient was more not alert, agitated, and having some hallucinations and was having increased amounts of falls including head hits. On exam, the patient was alert and oriented x3 and recalled the events of his most recent fall where he stated he felt lightheaded, felt his legs give out and fell hitting his head. He denied loss of consciousness or prodromal events such as palpitations, chest pain, shortness of breath, nausea, visual changes. Denied recent illnesses, sick contacts, or travel. On interview, denied abd pain , nausea, vomiting, chest pain, shortness of breath, fever, chills, dizziness, lightheadedness, numbness, tingling, focal weakness, cough. Endorsed constipation and chronic back pain. daughter also mentions that he was in the garden doing gardening also mentions that he has had rash for some time on the rt groin region - History Source History Provided By: Patient, Family Member Limitations to Obtaining History: Poor Historian - Alcohol/Substance Use Hx Alcohol Use: No - Smoking History Smoking history: Never smoked Have you smoked in the past 12 months: No Aproximately how many cigarettes per day: 0 If you are a former smoker, when did you quit?: Over 50 years ago Home Medications - Allergies Allergies/Adverse Reactions: Allergies Allergy/AdvReac Type Severity Reaction Status Date / Time No Known Drug Allergies Allergy Verified 07/25/13 10:22 - Home Medications Home Medications: Ambulatory Orders Simvastatin [Zocor] 40 mg PO DAILY 03/11/13 Aspirin [Aspirin EC] 81 mg PO DAILY #0 tablet. 07/26/13 Furosemide [Lasix -] 20 mg PO BID 09/06/19 Metoprolol Succinate [Toprol XL -] 100 mg PO Q48H 09/06/19 Metoprolol Succinate [Toprol Xl] 150 mg PO Q48H 09/06/19 Tramadol HCl 1 tab PO Q6H PRN 09/06/19 Warfarin Na [Coumadin -] 2.5 mg PO Q48H 09/06/19 Warfarin Na [Coumadin -] 5 mg PO Q48H 09/06/19 Review of Systems - Review of Systems Constitutional: reports: Weakness Eyes: reports: No Symptoms HENT: reports: No Symptoms Neck: reports: No Symptoms Cardiovascular: reports: No Symptoms Respiratory: reports: No Symptoms Gastrointestinal: reports: No Symptoms Musculoskeletal: reports: No Symptoms Neurological: reports: Incoordination, Unsteady Gait, Weakness Endocrine: reports: No Symptoms Hematology/Lymphatic: reports: No Symptoms Psychiatric: reports: No Symptoms Physical Exam Vital Signs: Vital Signs Temperature 98 F 09/06/19 15:04 Pulse Rate 91 H 09/06/19 15:04 Respiratory Rate 16 09/06/19 15:04 Blood Pressure 142/93 09/06/19 15:04 O2 Sat by Pulse Oximetry (%) 98 09/06/19 15:04 Constitutional: Yes: No Distress, Calm Eyes: Yes: Conjunctiva Clear HENT: Yes: Atraumatic, Normocephalic Cardiovascular: Yes: Pulse Irregular Respiratory: Yes: Regular, CTA Bilaterally Gastrointestinal: Yes: Normal Bowel Sounds, Soft Musculoskeletal: Yes: Other Integumentary: Yes: Erythema Psychiatric: Yes: Alert Labs: CBC, BMP 09/06/19 07:04 09/06/19 07:04 Imaging - Results Chest X-ray: Report Reviewed, Image Reviewed Cat Scan: Report Reviewed, Image Reviewed Assessment/Plan 8 year old male with a past medical history of CAD (s/p CABG, aortic valve replacement ?type, stent), afib (on coumadin), DM, HTN, CVA, HLD, spinal stenosis admitted for multiple falls. falls gm positive bacteremia fever increased bili avr aaa dm ckd plan patient got vanco will continue abx repeat blood cx await for identification of the organism
[2019-09-06] MEDS ORDERED: PIPERACILLIN/TAZOB 3.375 GM 3.375 GM/50 ML BAG IVPB ONE (19:55)
[2019-09-06] MEDS ORDERED: VANCOMYCIN 1 GRAM (PRE-DOCKED) 1,000 MG/250 ML BAG IVPB ONE (19:55)
[2019-09-06] MEDS ORDERED: PATIENT'S OWN MEDICATION (NON-FORMULARY) (Simvastatin 40 MG) PO SCH (22:00)
[2019-09-06] MEDS ORDERED: ATORVASTATIN CA 20 MG TABLET (FP) ONE (22:18)
[2019-09-06] MEDS: ATORVASTATIN CA 20 MG TABLET (FP) PO SCH (22:26)
[2019-09-07] MEDS ORDERED: PIPERACILLIN/TAZOB 3.375 GM 3.375 GM/50 ML BAG IVPB ONE (03:45)
[2019-09-07] MEDS: PIPERACILLIN/TAZOB 3.375 GM 3.375 GM in DEXTROSE 5%-WATER - 50 ML IVPB SCH ×3 (03:53→17:48)
[2019-09-07] MEDS: LIDOCAINE PATCH REMOVAL MC SCH ×2 (03:53→21:04)
[2019-09-07 04:26] LABS: COCAINE, UR NEGATIVE ng/ml (CUTOFF=300); METHADONE, UR NEGATIVE ng/ml (CUTOFF=300); OPIATES, URI NEGATIVE ng/ml (CUTOFF=300); PHENCYCLIDINE,URINE NEGATIVE ng/ml (CUTOFF=25); URINE AMPHETAMINES NEGATIVE ng/ml (CUTOFF=500); URINE BARBITURATES NEGATIVE ng/ml (CUTOFF=200); URINE BENZODIAZEPINES NEGATIVE ng/ml (CUTOFF=200)
[2019-09-07] MEDS: traMADol HCL 50 MG TABLET PO PRN ×2 (07:20→21:55)
[2019-09-07] MEDS: INSULIN SLIDING SCALE (NOVOLOG) 1 VIAL SQ SCH ×3 (07:22→17:03)
--- NOTE | 2019-09-07 08:13 | PN ---
Progress Note, Physician Chief Complaint: Patient calmer today. Accepting that he needs to stay in hospital. Less confused today History of Present Illness: 88 year old male with a past medical history of CAD (s/p CABG, aortic valve replacement ?type, stent), afib (on coumadin), DM, HTN, CVA, HLD, spinal stenosis admitted for multiple falls. - Current Medication List Current Medications: Active Medications Acetaminophen (Tylenol -) 650 mg PO Q6H PRN PRN Reason: PAIN LEVEL 6-10 Aspirin (Asa -) 81 mg PO DAILY [facility] Last Admin: 09/06/19 10:28 Dose: 81 mg Atorvastatin Calcium (Lipitor -) 20 mg PO HS [facility] Last Admin: 09/06/19 22:26 Dose: 20 mg Furosemide (Lasix -) 20 mg PO DAILY [facility] Last Admin: 09/06/19 10:28 Dose: 20 mg Piperacillin Sod/Tazobactam (Sod 3.375 gm/ Dextrose) 50 mls @ 100 mls/hr IVPB Q8H-IV [facility]; Protocol Last Admin: 09/07/19 03:53 Dose: 100 mls/hr Insulin Aspart (Novolog Vial Sliding Scale -) 1 vial SQ ACHS [facility]; Protocol Last Admin: 09/07/19 07:22 Dose: Not Given Lidocaine (Lidoderm Patch -) 1 patch TP DAILY [facility] Last Admin: 09/06/19 16:29 Dose: 1 patch Metoprolol Succinate (Toprol Xl -) 150 mg PO Q48H [facility] Last Admin: 09/06/19 10:28 Dose: 150 mg Metoprolol Succinate (Toprol Xl -) 100 mg PO Q48H [facility] Miscellaneous (Lidoderm Patch Removal) 1 each MC DAILY@2200 [facility] Last Admin: 09/07/19 03:53 Dose: 1 each Tramadol HCl (Ultram -) 50 mg PO Q6H PRN PRN Reason: BACK PAIN Last Admin: 09/07/19 07:20 Dose: 50 mg Warfarin Sodium (Coumadin -) 2.5 mg PO DAILY@1800 [facility] Last Admin: 09/06/19 18:38 Dose: 2.5 mg - Objective Vital Signs: Vital Signs Temperature 98.1 F 09/06/19 22:30 Pulse Rate 94 H 09/06/19 22:30 Respiratory Rate 18 09/06/19 22:30 Blood Pressure 164/87 09/06/19 22:30 O2 Sat by Pulse Oximetry (%) 97 09/06/19 22:30 Additional Findings/Remarks: Constitutional: Yes: Well Nourished, No Distress, Calm Eyes: Yes: WNL, Conjunctiva Clear, EOM Intact HENT: Yes: WNL, Atraumatic, Normocephalic Neck: Yes: WNL, Supple, Trachea Midline Cardiovascular: Yes: WNL, Regular Rate and Rhythm Respiratory: Yes: WNL, Regular, CTA Bilaterally Gastrointestinal: Yes: WNL, Normal Bowel Sounds ...Rectal Exam: Yes: Deferred Renal/: Yes: WNL Breast(s): Yes: WNL Musculoskeletal: Yes: Muscle Weakness Extremities: Yes: WNL Edema: No Peripheral Pulses WNL: Yes Peripheral Pulses: Left Radial: 2+, Right Radial: 2+, Left Doralis Pedis: 2+, Right Dorsalis Pedis: 2+, Left Femoral: 2+, Right Femoral: 2+ Integumentary: Yes: WNL Neurological: Yes: Alert, Unsteady Gait, Weakness (to LE) ...Motor Strength: LLE, RLE (weakness) Psychiatric: Yes: confused to year, calm Labs: INR, PTT INR 2.93 (0.83-1.09) H 09/06/19 07:04 - ....Imaging Cat Scan: Report Reviewed (HCT no acute pathology. Repeat HCT again with no pathology) Problem List - Problems (1) Bacteremia due to Gram-positive bacteria Assessment/Plan: T max overnight 100.4, now afebrile given vanco/zosyn yesterday-zosyn stopped blood cx with [facility]-pending speciation repeat cx sent Code(s): R78.81 - BACTEREMIA (2) CAD (coronary artery disease) Assessment/Plan: c/w asa, statin,BB Code(s): I25.10 - ATHSCL HEART DISEASE OF [place] CORONARY ARTERY W/O ANG PCTRS (3) Hx of CABG Code(s): Z95.1 - PRESENCE OF AORTOCORONARY BYPASS GRAFT (4) S/P AVR (aortic valve replacement) Assessment/Plan: AVR (t) 3 years ago remains coumadin pt doesnt recall name of home analytical laboratory technician-waiting for daughter to come in with name-will contact to see if he needs to be on asa/coumadin given recents falls Code(s): Z95.2 - PRESENCE OF PROSTHETIC HEART VALVE (5) Afib Assessment/Plan: AF rate controlled Code(s): I48.91 - UNSPECIFIED ATRIAL FIBRILLATION (6) Diabetes Assessment/Plan: BGM AC/HS with novolog sliding scale diabetic diet Code(s): E11.9 - TYPE 2 DIABETES MELLITUS WITHOUT COMPLICATIONS (7) CVA (cerebral vascular accident) Assessment/Plan: HCT negative no residual but with frequent falls appreciate neuro consultation Code(s): I63.9 - CEREBRAL INFARCTION, UNSPECIFIED (8) HLD (hyperlipidemia) Assessment/Plan: c/w atrovastatin Code(s): E78.5 - HYPERLIPIDEMIA, UNSPECIFIED (9) Spinal stenosis Assessment/Plan: tramadol prn pain Code(s): M48.00 - SPINAL STENOSIS, SITE UNSPECIFIED (10) Multiple falls Code(s): R29.6 - REPEATED FALLS (11) AMS (altered mental status) Assessment/Plan: with + BCx c/w abx mental status improving avoid opidoids and sedative agents Code(s): R41.82 - ALTERED MENTAL STATUS, UNSPECIFIED Qualifiers: Altered mental status type: unspecified Qualified Code(s): R41.82 - Altered mental status, unspecified (12) Prophylactic measure Assessment/Plan: FEN Fluids: adequate PO intake Electrolytes: monitor & replete as needed Nutrition: diabetic diet DVT on coumadin-being held Dispo Maintain as inpatient full code discharge planning with home services requested Code(s): Z29.9 - ENCOUNTER FOR PROPHYLACTIC MEASURES, UNSPECIFIED (13) Elevated INR Assessment/Plan: INR 3.99 Coumadin on hold continue to monitor fall precautions Code(s): R79.1 - ABNORMAL COAGULATION PROFILE Visit type - Emergency Visit Emergency Visit: Yes ED Registration Date: 09/05/19 Care time: The patient presented to the Emergency Department on the above date and was hospitalized for further evaluation of their emergent condition. - New Patient This patient is new to me today: No - Critical Care Critical Care patient: No - Discharge Referral Referred to [facility] Med [facility] No
[2019-09-07 08:42] LABS: ALBUMIN 3.4 g/dl (3.4-5.0); BLOOD UREA NITROGEN 19.4 mg/dL (7-18); CALCIUM 8.8 mg/dL (8.5-10.1); CREATININE 1.2 mg/dL (0.55-1.3); MAGNESIUM 2.1 mg/dL (1.8-2.4); POTASSIUM 3.7 mmol/L (3.5-5.1); TOT PROT 6.2 g/dl (6.4-8.2)
[2019-09-07 08:49] LABS: BASO % 1.3 % (0-2.0); HEMATOCRIT 44.7 % (35.4-49); HEMOGLOBIN 15.1 GM/dL (11.7-16.9); LYMPH % 13.1 % (8-40); MCH 29.1 pg (25.7-33.7); MCHC 33.7 g/dl (32.0-35.9); MEAN CELL VOLUME 86.2 fl (80-96); MEAN PLT VOLUME 7.8 fl (7.5-11.1); MONO % 7.5 % (3.8-10.2); NEUT % 77.1 % (42.8-82.8); PLATELET COUNT 167 K/MM3 (134-434); RBC 5.19 M/mm3 (4.00-5.60); RDW 14.1 % (11.9-15.9); WHITE BLOOD COUNT 8.2 K/mm3 (4.0-10.0)
--- NOTE | 2019-09-07 09:12 | CONSULT ---
Consult - text type - Consultation Consultation Note: Neurology CHIEF COMPLAINT: fall PCP: Dr. Roxanna Moore HISTORY OF PRESENT ILLNESS: Migel Pantoja is an 88 year old male with a past medical history of CAD (s/p CABG, aortic valve replacement ?type, stent), afib (on coumadin), DM, HTN, CVA, HLD, spinal stenosis, who had multiple recent falls at home and brought to the ED by his daughter for further evaluation. As per ED who obtained history from daughter the patient was noted to have altered mental status where patient was not alert, agitated, and having some hallucinations and was having increased amounts of falls including head hits. On exam, the patient was alert and oriented x3 and recalled the events of his most recent fall where he stated he felt lightheaded, felt his legs give out and fell hitting his head. He denied loss of consciousness or prodromal events such as palpitations, chest pain, shortness of breath, nausea, visual changes. Denied recent illnesses, sick contacts, or travel. He denied abd pain, nausea, vomiting, chest pain, shortness of breath, fever, chills, dizziness, lightheadedness, numbness, tingling, focal weakness, cough. Endorsed constipation and chronic back pain. Ct of head was completed and showed moderate atrophy but no evidence of acute intracranial pathology. Ct of cervical spine also reviewed and demostrated fusion of C4-C5 vertebral bodies with degenerative narrowing at C5-C6 and C6-C7 level and osteophyte complex from C4 down to C7 level. Also, L>R calcified plaques at CCA bifurcation. Consulted for evaluation of altered mental status and during my visit he was able to me that he is at [facility] along with the [facility] and the year he was off by one ffor the exact date but did know the name of the president as well, appears to be near baseline. -PAST MEDICAL HISTORY Recent Travel: denies PAST SURGICAL HISTORY: cholecystectomy, Achilles tendon repair, hernia repair Social History: Smokin-2 cigarettes per day Alcohol: denies Drugs: denies Former lombardo. Family History: HTN REVIEW OF SYSTEMS CONSTITUTIONAL: Absent: fever, chills, diaphoresis, generalized weakness, malaise, loss of appetite, weight change HEENT: Absent: rhinorrhea, nasal congestion, throat pain, throat swelling, difficulty swallowing, visual changes CARDIOVASCULAR: Absent: chest pain, syncope, palpitations, irregular heart rate, lightheadedness , peripheral edema RESPIRATORY: Absent: cough, shortness of breath, dyspnea with exertion, orthopnea, wheezing, GASTROINTESTINAL: constipation Absent: abdominal pain, abdominal distension, nausea, vomiting, diarrhea, melena, hematochezia GENITOURINARY: Absent: dysuria, frequency, urgency, hesitancy, hematuria, flank pain, MUSCULOSKELETAL: back pain Absent: myalgia, arthralgia, joint swelling, neck pain SKIN: Absent: rash, itching, pallor HEMATOLOGIC/IMMUNOLOGIC: Absent: easy bleeding, easy bruising, lymphadenopathy, frequent infections ENDOCRINE: Absent: unexplained weight gain, unexplained weight loss, heat intolerance, cold intolerance NEUROLOGIC: unsteady gait Absent: headache, focal weakness or paresthesias, dizziness, seizure, mental status changes, PSYCHIATRIC: Absent: anxiety, depression, suicidal or homicidal ideation, hallucinations. -HOME MEDICATIONS: Allergies No Known Drug Allergies Allergy (Verified 07/25/13 10:22) Home Medications Simvastatin [Zocor] 40 mg PO DAILY 03/11/13 Aspirin [Aspirin EC] 81 mg PO DAILY #0 tablet. 07/26/13 Furosemide [Lasix -] 20 mg PO BID 09/06/19 Metoprolol Succinate [Toprol XL -] 100 mg PO Q48H 09/06/19 Metoprolol Succinate [Toprol Xl] 150 mg PO Q48H 09/06/19 Tramadol HCl 1 tab PO Q6H PRN 09/06/19 Warfarin Na [Coumadin -] 2.5 mg PO Q48H 09/06/19 Warfarin Na [Coumadin -] 5 mg PO Q48H 09/06/19 Active Medications Acetaminophen (Tylenol -) 650 mg PO Q6H PRN PRN Reason: PAIN LEVEL 6-10 Aspirin (Asa -) 81 mg PO DAILY [facility] Last Admin: 09/06/19 10:28 Dose: 81 mg Atorvastatin Calcium (Lipitor -) 20 mg PO HS [facility] Last Admin: 09/06/19 22:26 Dose: 20 mg Furosemide (Lasix -) 20 mg PO BID@0600,1400 [facility] Piperacillin Sod/Tazobactam (Sod 3.375 gm/ Dextrose) 50 mls @ 100 mls/hr IVPB Q8H-IV [facility]; Protocol Last Admin: 01/15/20 03:53 Dose: 100 mls/hr Insulin Aspart (Novolog Vial Sliding Scale -) 1 vial SQ ACHS [facility]; Protocol Last Admin: 09/07/19 07:22 Dose: Not Given Lidocaine (Lidoderm Patch -) 1 patch TP DAILY [facility] Last Admin: 09/06/19 16:29 Dose: 1 patch Metoprolol Succinate (Toprol Xl -) 100 mg PO Q48H [facility] Metoprolol Succinate (Toprol Xl -) 150 mg PO Q48H [facility] Miscellaneous (Lidoderm Patch Removal) 1 each MC DAILY@2200 [facility] Last Admin: 09/07/19 03:53 Dose: 1 each Tramadol HCl (Ultram -) 50 mg PO Q6H PRN PRN Reason: BACK PAIN Last Admin: 09/07/19 07:20 Dose: 50 mg Warfarin Sodium (Coumadin -) 2.5 mg PO DAILY@1800 [facility] Last Admin: 09/06/19 18:38 Dose: 2.5 mg PHYSICAL EXAMINATION Vital Signs Period Temp Pulse Resp BP Sys/Uribe Pulse Ox Last 24 Hr 98 F-98.1 F 87-94 16-18 138-164/83-93 97-98 GENERAL: Awake, alert, and fully oriented, in no acute distress. HEAD: Normal with no signs of trauma. EYES: Pupils equal, round and reactive to light, extraocular movements intact, sclera anicteric, conjunctiva clear. EARS, NOSE, THROAT:Oropharynx clear without exudates. Moist mucous membranes. NECK: Normal range of motion, supple without lymphadenopathy, JVD. LUNGS: Breath sounds equal, clear to auscultation bilaterally. No wheezes, and no crackles. No accessory muscle use. HEART: Normal rate and irregular rhythm, normal S1 and S2 without murmur, rub. ABDOMEN: Soft, nontender, not distended, normoactive bowel sounds, no guarding, no rebound, no masses. MUSCULOSKELETAL: Difficulty sitting up secondary to pain UPPER EXTREMITIES: 2+ pulses, warm, well-perfused. No cyanosis. No clubbing. No peripheral edema. LOWER EXTREMITIES: 2+ pulses, warm, well-perfused. No calf tenderness. No peripheral edema. NEUROLOGICAL: Cranial nerves II-XII intact. 5/5 muscle strength upper and lower extremities bilaterally. Sensation intact to gross touch bilaterally. PSYCHIATRIC: Cooperative. Good eye contact. SKIN: Warm, dry, normal turgor, no rashes or lesions noted, normal capillary refill. CBCD WBC 8.2 K/mm3 (4.0-10.0) 09/07/19 07:54 RBC 5.19 M/mm3 (4.00-5.60) 09/07/19 07:54 Hgb 15.1 GM/dL (11.7-16.9) 09/07/19 07:54 Hct 44.7 % (35.4-49) 09/07/19 07:54 MCV 86.2 fl (80-96) 09/07/19 07:54 MCHC 33.7 g/dl (32.0-35.9) 09/07/19 07:54 RDW 14.1 % (11.9-15.9) 09/07/19 07:54 Plt Count 167 K/MM3 (134-434) 09/07/19 07:54 MPV 7.8 fl (7.5-11.1) 09/07/19 07:54 CMP Sodium 137 mmol/L (136-145) 09/07/19 07:54 Potassium 3.7 mmol/L (3.5-5.1) 09/07/19 07:54 Chloride 103 mmol/L (98-107) 09/07/19 07:54 Carbon Dioxide 25 mmol/L (21-32) 09/07/19 07:54 Anion Gap 9 MMOL/L (8-16) 09/07/19 07:54 BUN 19.4 mg/dL (7-18) H 09/07/19 07:54 Creatinine 1.2 mg/dL (0.55-1.3) 09/07/19 07:54 Random Glucose 87 mg/dL (74-106) 09/07/19 07:54 Calcium 8.8 mg/dL (8.5-10.1) 09/07/19 07:54 Total Bilirubin 4.0 mg/dL (0.2-1) H 09/07/19 07:54 AST 28 U/L (15-37) 09/07/19 07:54 ALT 10 U/L (13-61) L 09/07/19 07:54 Alkaline Phosphatase 88 U/L (45-117) 09/07/19 07:54 Total Protein 6.2 g/dl (6.4-8.2) L 09/07/19 07:54 Albumin 3.4 g/dl (3.4-5.0) 09/07/19 07:54 CARDIAC ENZYMES Creatine Kinase 126 U/L (26-308) 09/05/19 18:32 Troponin I 0.06 ng/ml (0.00-0.05) H 09/06/19 07:04 ASSESSMENT/PLAN: Migel Pantoja is an 88 year old male with a past medical history of CAD (s/p CABG, aortic valve replacement ?type, stent), afib (on coumadin), DM, HTN, CVA, HLD, spinal stenosis, who had multiple recent falls at home and brought to the ED by his daughter for further evaluation. As per ED who obtained history from daughter the patient was noted to have altered mental status where patient was not alert, agitated, and having some hallucinations and was having increased amounts of falls including head hits. On exam, the patient was alert and oriented x3 and recalled the events of his most recent fall where he stated he felt lightheaded, felt his legs give out and fell hitting his head. He denied loss of consciousness or prodromal events such as palpitations, chest pain, shortness of breath, nausea, visual changes. Denied recent illnesses, sick contacts, or travel. He denied abd pain, nausea, vomiting, chest pain, shortness of breath, fever, chills, dizziness, lightheadedness, numbness, tingling, focal weakness, cough. Endorsed constipation and chronic back pain. Ct of head was completed and showed moderate atrophy but no evidence of acute intracranial pathology. Ct of cervical spine also reviewed and demostrated fusion of C4-C5 vertebral bodies with degenerative narrowing at C5-C6 and C6-C7 level and osteophyte complex from C4 down to C7 level. Also, L>R calcified plaques at CCA bifurcation. Consulted for evaluation of altered mental status and during my visit he was able to me that he is at [facility] along with the [facility] and the year he was off by one ffor the exact date but did know the name of the president as well, appears to be near baseline. Continue medical management, monitor blood pressure, maintain normotensive range. Maintain adequate hydration, fall precautions.
--- NOTE | 2019-09-07 09:17 | PN ---
Progress Note, Physician History of Present Illness: stable awake alert - Current Medication List Current Medications: Active Medications Acetaminophen (Tylenol -) 650 mg PO Q6H PRN PRN Reason: PAIN LEVEL 6-10 Aspirin (Asa -) 81 mg PO DAILY [facility] Last Admin: 09/06/19 10:28 Dose: 81 mg Atorvastatin Calcium (Lipitor -) 20 mg PO HS [facility] Last Admin: 09/06/19 22:26 Dose: 20 mg Furosemide (Lasix -) 20 mg PO BID@0600,1400 [facility] Piperacillin Sod/Tazobactam (Sod 3.375 gm/ Dextrose) 50 mls @ 100 mls/hr IVPB Q8H-IV [facility]; Protocol Last Admin: 09/07/19 03:53 Dose: 100 mls/hr Insulin Aspart (Novolog Vial Sliding Scale -) 1 vial SQ ACHS [facility]; Protocol Last Admin: 09/07/19 07:22 Dose: Not Given Lidocaine (Lidoderm Patch -) 1 patch TP DAILY [facility] Last Admin: 09/06/19 16:29 Dose: 1 patch Metoprolol Succinate (Toprol Xl -) 100 mg PO Q48H [facility] Metoprolol Succinate (Toprol Xl -) 150 mg PO Q48H [facility] Miscellaneous (Lidoderm Patch Removal) 1 each MC DAILY@2200 [facility] Last Admin: 09/07/19 03:53 Dose: 1 each Tramadol HCl (Ultram -) 50 mg PO Q6H PRN PRN Reason: BACK PAIN Last Admin: 09/07/19 07:20 Dose: 50 mg Warfarin Sodium (Coumadin -) 2.5 mg PO DAILY@1800 [facility] Last Admin: 09/06/19 18:38 Dose: 2.5 mg - Objective Vital Signs: Vital Signs Temperature 98.1 F 09/06/19 22:30 Pulse Rate 94 H 09/06/19 22:30 Respiratory Rate 18 09/06/19 22:30 Blood Pressure 164/87 09/06/19 22:30 O2 Sat by Pulse Oximetry (%) 97 09/06/19 22:30 Constitutional: Yes: No Distress, Calm Cardiovascular: Yes: S1, S2 Respiratory: Yes: Regular, CTA Bilaterally Gastrointestinal: Yes: Normal Bowel Sounds, Soft Musculoskeletal: Yes: WNL Extremities: Yes: WNL Integumentary: Yes: Rash (rt lower abd) Neurological: Yes: Alert, Oriented Psychiatric: Yes: Alert, Oriented Labs: CBC, BMP 09/07/19 07:54 09/07/19 07:54 INR, PTT INR 2.93 (0.83-1.09) H 09/06/19 07:04 Assessment/Plan 8 year old male with a past medical history of CAD (s/p CABG, aortic valve replacement ?type, stent), afib (on coumadin), DM, HTN, CVA, HLD, spinal stenosis admitted for multiple falls. falls gm positive bacteremia fever increased bili avr aaa dm rash plan continue vanco repeat blood cx ordered consider antifungal cream for rash rest as per the team
[2019-09-07] MEDS ORDERED: PT OWN MED DRAWER 7, Y5N ONE (09:50)
[2019-09-07] MEDS: LIDOCAINE 5% TOPICAL PATCH TP SCH (10:06)
[2019-09-07] MEDS: ASPIRIN 81 MG CHEWABLE TABLETS PO SCH (10:06)
[2019-09-07 10:29] LABS: INR 3.99 (0.83-1.09); PROTHROMBIN TIME (PATIENT) 47.7 SEC (9.7-13.0)
[2019-09-07] MEDS ORDERED: DEXTROSE 5%-WATER - 50 ML IVPB ONE ×2 (10:29→17:12)
[2019-09-07] MEDS ORDERED: PIPERACILLIN/TAZOBACTAM 3.375 GM VIAL IVPB ONE ×2 (10:29→17:12)
[2019-09-07] MEDS: VANCOMYCIN HCL 1,250 MG in DEXTROSE 5%-WATER - 250 ML IVPB SCH (11:22)
[2019-09-07] MEDS: FUROSEMIDE 20 MG TABLET (FP) PO SCH (13:45)
[2019-09-07 16:23] VITALS: BMI 29.5
[2019-09-07] MEDS ORDERED: WARFARIN NA 5 MG TABLET (UD) PO SCH (18:00)
[2019-09-07] MEDS: ATORVASTATIN CA 20 MG TABLET (FP) PO SCH (21:03)
[2019-09-08] MEDS ORDERED: PIPERACILLIN/TAZOBACTAM 3.375 GM VIAL IVPB ONE ×2 (01:20→09:19)
[2019-09-08] MEDS ORDERED: DEXTROSE 5%-WATER - 50 ML IVPB ONE ×2 (01:20→09:19)
[2019-09-08] MEDS: PIPERACILLIN/TAZOB 3.375 GM 3.375 GM in DEXTROSE 5%-WATER - 50 ML IVPB SCH ×2 (01:42→10:10)
[2019-09-08] MEDS: traMADol HCL 50 MG TABLET PO PRN ×4 (04:15→21:23)
[2019-09-08] MEDS: FUROSEMIDE 20 MG TABLET (FP) PO SCH ×2 (05:33→14:55)
[2019-09-08 07:44] LABS: BASO % 1.1 % (0-2.0); EOS % 2.7 % (0-4.5); HEMATOCRIT 44.3 % (35.4-49); LYMPH % 18.5 % (8-40); MCH 29.1 pg (25.7-33.7); MCHC 33.8 g/dl (32.0-35.9); MEAN PLT VOLUME 7.7 fl (7.5-11.1); MONO % 6.9 % (3.8-10.2); NEUT % 70.8 % (42.8-82.8); PLATELET COUNT 199 K/MM3 (134-434); RBC 5.15 M/mm3 (4.00-5.60); RDW 13.9 % (11.9-15.9); WHITE BLOOD COUNT 7.1 K/mm3 (4.0-10.0)
--- NOTE | 2019-09-08 08:24 | PN ---
Progress Note, Physician History of Present Illness: 88 year old male with a past medical history of CAD (s/p CABG, aortic valve replacement ?type, stent), afib (on coumadin), DM, HTN, CVA, HLD, spinal stenosis admitted for multiple falls. - Current Medication List Current Medications: Active Medications Acetaminophen (Tylenol -) 650 mg PO Q6H PRN PRN Reason: PAIN LEVEL 6-10 Last Admin: 09/08/19 03:03 Dose: 650 mg Aspirin (Asa -) 81 mg PO DAILY [facility] Last Admin: 09/07/19 10:06 Dose: 81 mg Atorvastatin Calcium (Lipitor -) 20 mg PO HS [facility] Last Admin: 09/07/19 21:03 Dose: 20 mg Furosemide (Lasix -) 20 mg PO BID@0600,1400 [facility] Last Admin: 09/08/19 05:33 Dose: 20 mg Piperacillin Sod/Tazobactam (Sod 3.375 gm/ Dextrose) 50 mls @ 100 mls/hr IVPB Q8H-IV [facility]; Protocol Last Admin: 09/08/19 01:42 Dose: 100 mls/hr Vancomycin HCl 1,250 mg/ (Dextrose) 250 mls @ 166.667 mls/hr IVPB Q24H [facility]; Protocol Last Admin: 09/07/19 11:22 Dose: 166.667 mls/hr Lidocaine (Lidoderm Patch -) 1 patch TP DAILY [facility] Last Admin: 09/07/19 10:06 Dose: 1 patch Metoprolol Succinate (Toprol Xl -) 100 mg PO Q2D@1000 [facility] Last Admin: 09/07/19 13:37 Dose: Not Given Metoprolol Succinate (Toprol Xl -) 150 mg PO Q48H [facility] Miscellaneous (Lidoderm Patch Removal) 1 each MC DAILY@2200 [facility] Last Admin: 09/07/19 21:04 Dose: 1 each Tramadol HCl (Ultram -) 50 mg PO Q6H PRN PRN Reason: BACK PAIN Last Admin: 09/08/19 04:15 Dose: 50 mg Warfarin Sodium (Coumadin -) 2.5 mg PO DAILY@1800 [facility] Last Admin: 09/06/19 18:38 Dose: 2.5 mg - Objective Vital Signs: Vital Signs Temperature 98.1 F 09/08/19 06:31 Pulse Rate 90 09/08/19 06:31 Respiratory Rate 18 09/08/19 06:31 Blood Pressure 115/74 09/08/19 06:31 O2 Sat by Pulse Oximetry (%) 95 09/07/19 21:00 Additional Findings/Remarks: Constitutional: Yes: Well Nourished, No Distress, Calm Eyes: Yes: WNL, Conjunctiva Clear, EOM Intact HENT: Yes: WNL, Atraumatic, Normocephalic Neck: Yes: WNL, Supple, Trachea Midline Cardiovascular: Yes: WNL, Regular Rate and Rhythm Respiratory: Yes: WNL, Regular, CTA Bilaterally Gastrointestinal: Yes: WNL, Normal Bowel Sounds ...Rectal Exam: Yes: Deferred Renal/: Yes: WNL Breast(s): Yes: WNL Musculoskeletal: Yes: Muscle Weakness Extremities: Yes: WNL Edema: No Peripheral Pulses WNL: Yes Peripheral Pulses: Left Radial: 2+, Right Radial: 2+, Left Doralis Pedis: 2+, Right Dorsalis Pedis: 2+, Left Femoral: 2+, Right Femoral: 2+ Integumentary: Yes: WNL Neurological: Yes: Alert, Unsteady Gait, Weakness (to LE) ...Motor Strength: LLE, RLE (weakness) Psychiatric: Yes: confused to year, calm Labs: CBC, BMP 09/08/19 07:05 INR, PTT INR 3.99 (0.83-1.09) H 09/07/19 09:30 Problem List - Problems (1) Bacteremia due to Gram-positive bacteria Code(s): R78.81 - BACTEREMIA (2) CAD (coronary artery disease) Code(s): I25.10 - ATHSCL HEART DISEASE OF [place] CORONARY ARTERY W/O ANG PCTRS (3) Hx of CABG Code(s): Z95.1 - PRESENCE OF AORTOCORONARY BYPASS GRAFT (4) S/P AVR (aortic valve replacement) Code(s): Z95.2 - PRESENCE OF PROSTHETIC HEART VALVE (5) Afib Code(s): I48.91 - UNSPECIFIED ATRIAL FIBRILLATION (6) Diabetes Code(s): E11.9 - TYPE 2 DIABETES MELLITUS WITHOUT COMPLICATIONS (7) CVA (cerebral vascular accident) Code(s): I63.9 - CEREBRAL INFARCTION, UNSPECIFIED (8) HLD (hyperlipidemia) Code(s): E78.5 - HYPERLIPIDEMIA, UNSPECIFIED (9) Spinal stenosis Code(s): M48.00 - SPINAL STENOSIS, SITE UNSPECIFIED (10) Multiple falls Code(s): R29.6 - REPEATED FALLS (11) AMS (altered mental status) Code(s): R41.82 - ALTERED MENTAL STATUS, UNSPECIFIED Qualifiers: Altered mental status type: unspecified Qualified Code(s): R41.82 - Altered mental status, unspecified (12) Prophylactic measure Code(s): Z29.9 - ENCOUNTER FOR PROPHYLACTIC MEASURES, UNSPECIFIED (13) Elevated INR Code(s): R79.1 - ABNORMAL COAGULATION PROFILE
[2019-09-08 08:27] LABS: ALBUMIN 3.5 g/dl (3.4-5.0); BILIRUBIN,TOTAL 2.5 mg/dL (0.2-1); BLOOD UREA NITROGEN 25.8 mg/dL (7-18); CALCIUM 8.9 mg/dL (8.5-10.1); CREATININE 1.5 mg/dL (0.55-1.3); MAGNESIUM 2.3 mg/dL (1.8-2.4); POTASSIUM 3.3 mmol/L (3.5-5.1); TOT PROT 6.5 g/dl (6.4-8.2)
--- NOTE | 2019-09-08 08:31 | PN ---
Progress Note (short form) - Note Progress Note: Neurology CHIEF COMPLAINT: fall PCP: Dr. Roxanna Moore HISTORY OF PRESENT ILLNESS: Migel Pantoja is an 88 year old male with a past medical history of CAD (s/p CABG, aortic valve replacement ?type, stent), afib (on coumadin), DM, HTN, CVA, HLD, spinal stenosis, who had multiple recent falls at home and brought to the ED by his daughter for further evaluation. As per ED who obtained history from daughter the patient was noted to have altered mental status where patient was not alert, agitated, and having some hallucinations and was having increased amounts of falls including head hits. On exam, the patient was alert and oriented x3 and recalled the events of his most recent fall where he stated he felt lightheaded, felt his legs give out and fell hitting his head. He denied loss of consciousness or prodromal events such as palpitations, chest pain, shortness of breath, nausea, visual changes. Denied recent illnesses, sick contacts, or travel. He denied abd pain, nausea, vomiting, chest pain, shortness of breath, fever, chills, dizziness, lightheadedness, numbness, tingling, focal weakness, cough. Endorsed constipation and chronic back pain. Ct of head was completed and showed moderate atrophy but no evidence of acute intracranial pathology. Ct of cervical spine also reviewed and demostrated fusion of C4-C5 vertebral bodies with degenerative narrowing at C5-C6 and C6-C7 level and osteophyte complex from C4 down to C7 level. Also, L>R calcified plaques at CCA bifurcation. Consulted for evaluation of altered mental status and again during my visit today he was able to me that he is at [facility] along with the correct month and the year and knows the name of the president as well, appears to be near baseline still. No acute events overnight. Active Medications Acetaminophen (Tylenol -) 650 mg PO Q6H PRN PRN Reason: PAIN LEVEL 6-10 Last Admin: 09/08/19 03:03 Dose: 650 mg Aspirin (Asa -) 81 mg PO DAILY [facility] Last Admin: 09/07/19 10:06 Dose: 81 mg Atorvastatin Calcium (Lipitor -) 20 mg PO HS [facility] Last Admin: 09/07/19 21:03 Dose: 20 mg Furosemide (Lasix -) 20 mg PO BID@0600,1400 [facility] Last Admin: 09/08/19 05:33 Dose: 20 mg Piperacillin Sod/Tazobactam (Sod 3.375 gm/ Dextrose) 50 mls @ 100 mls/hr IVPB Q8H-IV [facility]; Protocol Last Admin: 09/08/19 01:42 Dose: 100 mls/hr Vancomycin HCl 1,250 mg/ (Dextrose) 250 mls @ 166.667 mls/hr IVPB Q24H [facility]; Protocol Last Admin: 09/07/19 11:22 Dose: 166.667 mls/hr Lidocaine (Lidoderm Patch -) 1 patch TP DAILY [facility] Last Admin: 09/07/19 10:06 Dose: 1 patch Metoprolol Succinate (Toprol Xl -) 100 mg PO Q2D@1000 [facility] Last Admin: 09/07/19 13:37 Dose: Not Given Metoprolol Succinate (Toprol Xl -) 150 mg PO Q48H [facility] Miscellaneous (Lidoderm Patch Removal) 1 each MC DAILY@2200 [facility] Last Admin: 09/07/19 21:04 Dose: 1 each Tramadol HCl (Ultram -) 50 mg PO Q6H PRN PRN Reason: BACK PAIN Last Admin: 09/08/19 04:15 Dose: 50 mg Warfarin Sodium (Coumadin -) 2.5 mg PO DAILY@1800 [facility] Last Admin: 09/06/19 18:38 Dose: 2.5 mg PHYSICAL EXAMINATION Vital Signs Period Temp Pulse Resp BP Sys/Uribe Pulse Ox Last 24 Hr 97.6 F-98.9 F 89-112 18-20 95-126/57-81 95-97 GENERAL: Awake, alert, and fully oriented, in no acute distress. HEAD: Normal with no signs of trauma. EYES: Pupils equal, round and reactive to light, extraocular movements intact, sclera anicteric, conjunctiva clear. EARS, NOSE, THROAT:Oropharynx clear without exudates. Moist mucous membranes. NECK: Normal range of motion, supple without lymphadenopathy, JVD. LUNGS: Breath sounds equal, clear to auscultation bilaterally. No wheezes, and no crackles. No accessory muscle use. HEART: Normal rate and irregular rhythm, normal S1 and S2 without murmur, rub. ABDOMEN: Soft, nontender, not distended, normoactive bowel sounds, no guarding, no rebound, no masses. MUSCULOSKELETAL: Difficulty sitting up secondary to pain UPPER EXTREMITIES: 2+ pulses, warm, well-perfused. No cyanosis. No clubbing. No peripheral edema. LOWER EXTREMITIES: 2+ pulses, warm, well-perfused. No calf tenderness. No peripheral edema. NEUROLOGICAL: Cranial nerves II-XII intact. 5/5 muscle strength upper and lower extremities bilaterally. Sensation intact to gross touch bilaterally. PSYCHIATRIC: Cooperative. Good eye contact. SKIN: Warm, dry, normal turgor, no rashes or lesions noted, normal capillary refill. CBCD WBC 7.1 K/mm3 (4.0-10.0) 09/08/19 07:05 RBC 5.15 M/mm3 (4.00-5.60) 09/08/19 07:05 Hgb 15.0 GM/dL (11.7-16.9) 09/08/19 07:05 Hct 44.3 % (35.4-49) 09/08/19 07:05 MCV 86.0 fl (80-96) 09/08/19 07:05 MCHC 33.8 g/dl (32.0-35.9) 09/08/19 07:05 RDW 13.9 % (11.9-15.9) 09/08/19 07:05 Plt Count 199 K/MM3 (134-434) 09/08/19 07:05 MPV 7.7 fl (7.5-11.1) 09/08/19 07:05 CMP Sodium 138 mmol/L (136-145) 09/08/19 06:55 Potassium 3.3 mmol/L (3.5-5.1) L 09/08/19 06:55 Chloride 104 mmol/L (98-107) 09/08/19 06:55 Carbon Dioxide 27 mmol/L (21-32) 09/08/19 06:55 Anion Gap 7 MMOL/L (8-16) L 09/08/19 06:55 BUN 25.8 mg/dL (7-18) H 09/08/19 06:55 Creatinine 1.5 mg/dL (0.55-1.3) H 09/08/19 06:55 Random Glucose 132 mg/dL (74-106) H 09/08/19 06:55 Calcium 8.9 mg/dL (8.5-10.1) 09/08/19 06:55 Total Bilirubin 2.5 mg/dL (0.2-1) H 09/08/19 06:55 AST 30 U/L (15-37) 09/08/19 06:55 ALT 11 U/L (13-61) L 09/08/19 06:55 Alkaline Phosphatase 92 U/L (45-117) 09/08/19 06:55 Total Protein 6.5 g/dl (6.4-8.2) 09/08/19 06:55 Albumin 3.5 g/dl (3.4-5.0) 09/08/19 06:55 CARDIAC ENZYMES Creatine Kinase 126 U/L (26-308) 09/05/19 18:32 Troponin I 0.06 ng/ml (0.00-0.05) H 09/06/19 07:04 ASSESSMENT/PLAN: Migel Pantoja is an 88 year old male with a past medical history of CAD (s/p CABG, aortic valve replacement ?type, stent), afib (on coumadin), DM, HTN, CVA, HLD, spinal stenosis, who had multiple recent falls at home and brought to the ED by his daughter for further evaluation. As per ED who obtained history from daughter the patient was noted to have altered mental status where patient was not alert, agitated, and having some hallucinations and was having increased amounts of falls including head hits. On exam, the patient was alert and oriented x3 and recalled the events of his most recent fall where he stated he felt lightheaded, felt his legs give out and fell hitting his head. He denied loss of consciousness or prodromal events such as palpitations, chest pain, shortness of breath, nausea, visual changes. Denied recent illnesses, sick contacts, or travel. He denied abd pain, nausea, vomiting, chest pain, shortness of breath, fever, chills, dizziness, lightheadedness, numbness, tingling, focal weakness, cough. Endorsed constipation and chronic back pain. Ct of head was completed and showed moderate atrophy but no evidence of acute intracranial pathology. Ct of cervical spine also reviewed and demostrated fusion of C4-C5 vertebral bodies with degenerative narrowing at C5-C6 and C6-C7 level and osteophyte complex from C4 down to C7 level. Also, L>R calcified plaques at CCA bifurcation. Consulted for evaluation of altered mental status and again during my visit today he was able to me that he is at [facility] along with the correct month and the year and knows the name of the president as well, appears to be near baseline still. No acute events overnight. Continue medical management, monitor blood pressure, maintain normotensive range. Maintain adequate hydration, fall precautions. Continue reorientation.
--- NOTE | 2019-09-08 08:33 | PN ---
Progress Note, Physician Chief Complaint: Patient upset that he is still in hospital. Does not want to go to SNF/rehab. History of Present Illness: 88 year old male with a past medical history of CAD (s/p CABG, aortic valve replacement ?type, stent), afib (on coumadin), DM, HTN, CVA, HLD, spinal stenosis admitted for multiple falls. - Current Medication List Current Medications: Active Medications Acetaminophen (Tylenol -) 650 mg PO Q6H PRN PRN Reason: PAIN LEVEL 6-10 Last Admin: 09/08/19 03:03 Dose: 650 mg Aspirin (Asa -) 81 mg PO DAILY [facility] Last Admin: 09/07/19 10:06 Dose: 81 mg Atorvastatin Calcium (Lipitor -) 20 mg PO HS [facility] Last Admin: 09/07/19 21:03 Dose: 20 mg Furosemide (Lasix -) 20 mg PO BID@0600,1400 [facility] Last Admin: 09/08/19 05:33 Dose: 20 mg Piperacillin Sod/Tazobactam (Sod 3.375 gm/ Dextrose) 50 mls @ 100 mls/hr IVPB Q8H-IV [facility]; Protocol Last Admin: 09/08/19 01:42 Dose: 100 mls/hr Vancomycin HCl 1,250 mg/ (Dextrose) 250 mls @ 166.667 mls/hr IVPB Q24H [facility]; Protocol Last Admin: 09/07/19 11:22 Dose: 166.667 mls/hr Lidocaine (Lidoderm Patch -) 1 patch TP DAILY [facility] Last Admin: 09/07/19 10:06 Dose: 1 patch Metoprolol Succinate (Toprol Xl -) 100 mg PO Q2D@1000 [facility] Last Admin: 09/07/19 13:37 Dose: Not Given Metoprolol Succinate (Toprol Xl -) 150 mg PO Q48H [facility] Miscellaneous (Lidoderm Patch Removal) 1 each MC DAILY@2200 [facility] Last Admin: 09/07/19 21:04 Dose: 1 each Tramadol HCl (Ultram -) 50 mg PO Q6H PRN PRN Reason: BACK PAIN Last Admin: 09/08/19 04:15 Dose: 50 mg Warfarin Sodium (Coumadin -) 2.5 mg PO DAILY@1800 [facility] Last Admin: 09/06/19 18:38 Dose: 2.5 mg - Objective Vital Signs: Vital Signs Temperature 98.1 F 09/08/19 06:31 Pulse Rate 90 09/08/19 06:31 Respiratory Rate 18 09/08/19 06:31 Blood Pressure 115/74 09/08/19 06:31 O2 Sat by Pulse Oximetry (%) 95 09/07/19 21:00 Additional Findings/Remarks: Constitutional: Yes: Well Nourished, No Distress, Calm Eyes: Yes: WNL, Conjunctiva Clear, EOM Intact HENT: Yes: WNL, Atraumatic, Normocephalic Neck: Yes: WNL, Supple, Trachea Midline Cardiovascular: Yes: WNL, Regular Rate and Rhythm Respiratory: Yes: WNL, Regular, CTA Bilaterally Gastrointestinal: Yes: WNL, Normal Bowel Sounds ...Rectal Exam: Yes: Deferred Renal/: Yes: WNL Breast(s): Yes: WNL Musculoskeletal: Yes: Muscle Weakness Extremities: Yes: WNL Edema: No Peripheral Pulses WNL: Yes Peripheral Pulses: Left Radial: 2+, Right Radial: 2+, Left Doralis Pedis: 2+, Right Dorsalis Pedis: 2+, Left Femoral: 2+, Right Femoral: 2+ Integumentary: Yes: WNL Neurological: Yes: Alert, Unsteady Gait, Weakness (to LE) ...Motor Strength: LLE, RLE (weakness) Psychiatric: Yes: confused to year, upset he is still hospitalized Labs: CBC, BMP 09/08/19 07:05 09/08/19 06:55 INR, PTT INR 3.99 (0.83-1.09) H 09/07/19 09:30 Problem List - Problems (1) Bacteremia due to Gram-positive bacteria Assessment/Plan: remains afebrile BCX with staph epi most likely contaiminant ABX stopped and will observe off Code(s): R78.81 - BACTEREMIA (2) CAD (coronary artery disease) Assessment/Plan: c/w asa, statin,BB Code(s): I25.10 - ATHSCL HEART DISEASE OF [place] CORONARY ARTERY W/O ANG PCTRS (3) Hx of CABG Code(s): Z95.1 - PRESENCE OF AORTOCORONARY BYPASS GRAFT (4) S/P AVR (aortic valve replacement) Assessment/Plan: AVR (t) 3 years ago remains coumadin [place] [facility] [place] Casarez TTE done and no acute pathology Code(s): Z95.2 - PRESENCE OF PROSTHETIC HEART VALVE (5) Afib Assessment/Plan: AF rate controlled on coumadin Code(s): I48.91 - UNSPECIFIED ATRIAL FIBRILLATION (6) Diabetes Assessment/Plan: BGM AC/HS with novolog sliding scale diabetic diet Code(s): E11.9 - TYPE 2 DIABETES MELLITUS WITHOUT COMPLICATIONS (7) CVA (cerebral vascular accident) Assessment/Plan: HCT negative no residual but with frequent falls appreciate neuro consultation Code(s): I63.9 - CEREBRAL INFARCTION, UNSPECIFIED (8) HLD (hyperlipidemia) Assessment/Plan: c/w atrovastatin Code(s): E78.5 - HYPERLIPIDEMIA, UNSPECIFIED (9) Spinal stenosis Assessment/Plan: tramadol prn pain Code(s): M48.00 - SPINAL STENOSIS, SITE UNSPECIFIED (10) Multiple falls Assessment/Plan: working with PT w/c ordered for discharge home Code(s): R29.6 - REPEATED FALLS (11) AMS (altered mental status) Code(s): R41.82 - ALTERED MENTAL STATUS, UNSPECIFIED Qualifiers: Altered mental status type: unspecified Qualified Code(s): R41.82 - Altered mental status, unspecified (12) Prophylactic measure Assessment/Plan: FEN Fluids: adequate PO intake Electrolytes: monitor & replete as needed Nutrition: diabetic diet DVT on coumadin-being held Dispo Maintain as inpatient full code discharge planning with home services requested Code(s): Z29.9 - ENCOUNTER FOR PROPHYLACTIC MEASURES, UNSPECIFIED (13) Elevated INR Assessment/Plan: INR 2.73 will restart coumadin tonight at 2.5 mg continue to monitor fall precautions Code(s): R79.1 - ABNORMAL COAGULATION PROFILE Visit type - Emergency Visit Emergency Visit: Yes ED Registration Date: 09/05/19 Care time: The patient presented to the Emergency Department on the above date and was hospitalized for further evaluation of their emergent condition. - New Patient This patient is new to me today: No - Critical Care Critical Care patient: No - Discharge Referral Referred to [facility] No
[2019-09-08] MEDS ORDERED: PT OWN MED DRAWER 7, Y5N ONE (09:18)
[2019-09-08] MEDS: LIDOCAINE 5% TOPICAL PATCH TP SCH (10:11)
[2019-09-08] MEDS: ASPIRIN 81 MG CHEWABLE TABLETS PO SCH (10:11)
[2019-09-08 10:51] LABS: INR 2.73 (0.83-1.09); PROTHROMBIN TIME (PATIENT) 32.5 SEC (9.7-13.0)
[2019-09-08] MEDS: VANCOMYCIN HCL 1,250 MG in DEXTROSE 5%-WATER - 250 ML IVPB SCH (11:05)
--- NOTE | 2019-09-08 12:29 | CON.CARD ---
Consult Consult Specialty:: Cardiology Referred by:: Hospitalist Medicine Reason for Consultation:: nonobstructive CAD, bioAVR - History of Present Illness Chief Complaint: s/p mechanical falls History of Present Illness: 88 yo male h/o nonobstructive CAD s/p bovine pericardial AVR for , chronic afib, DM, CVA, HTN, chol, PAD, spinal stenosis, diastolic dysfunction,CKD, severe DJD last saw Dr. Gillis at [facility] [place]/22/2019, hospitalized for altered mental status and more frequent falls, coag neg staph bacteremia. Sensorium has since improved to baseline. - History Source History Provided By: Patient Limitations to Obtaining History: No Limitations - Alcohol/Substance Use Hx Alcohol Use: No - Smoking History Smoking history: Never smoked Have you smoked in the past 12 months: No Aproximately how many cigarettes per day: 0 If you are a former smoker, when did you quit?: Over 50 years ago Home Medications - Allergies Allergies/Adverse Reactions: Allergies Allergy/AdvReac Type Severity Reaction Status Date / Time No Known Drug Allergies Allergy Verified 07/25/13 10:22 - Home Medications Home Medications: Ambulatory Orders Simvastatin [Zocor] 40 mg PO DAILY 03/11/13 Aspirin [Aspirin EC] 81 mg PO DAILY #0 tablet. 07/26/13 Furosemide [Lasix -] 20 mg PO BID 09/06/19 Metoprolol Succinate [Toprol XL -] 100 mg PO Q48H 09/06/19 Metoprolol Succinate [Toprol Xl] 150 mg PO Q48H 09/06/19 Tramadol HCl 1 tab PO Q6H PRN 09/06/19 Warfarin Na [Coumadin -] 2.5 mg PO Q48H 09/06/19 Warfarin Na [Coumadin -] 5 mg PO Q48H 09/06/19 Review of Systems - Review of Systems Neurological: reports: Confusion, Incoordination, Unsteady Gait, Weakness Vital Signs: Vital Signs Temperature 98.1 F 09/08/19 10:00 Pulse Rate 89 09/08/19 10:00 Respiratory Rate 18 09/08/19 10:00 Blood Pressure 124/69 09/08/19 10:00 O2 Sat by Pulse Oximetry (%) 95 09/08/19 09:00 Constitutional: Yes: No Distress, Calm Neck: Yes: Supple Respiratory: Yes: Regular, CTA Bilaterally Gastrointestinal: Yes: Normal Bowel Sounds, Soft Cardiovascular: Yes: Pulse Irregular JVD: No Carotid Bruit: No Heart Sounds: Yes: S1, S2 Edema: No - Other Data Labs, Other Data: CBC, BMP 09/08/19 07:05 09/08/19 06:55 INR, PTT INR 2.73 (0.83-1.09) H 09/08/19 07:05 Afib @ 88 nonspec T changes similar to previous 02/22/2019 Echo: Report Reviewed Ejection Fraction %: LVEF > or = 40 % Problem List - Problems (1) AMS (altered mental status) Code(s): R41.82 - ALTERED MENTAL STATUS, UNSPECIFIED Qualifiers: Altered mental status type: unspecified Qualified Code(s): R41.82 - Altered mental status, unspecified (2) Afib Code(s): I48.91 - UNSPECIFIED ATRIAL FIBRILLATION Qualifiers: Atrial fibrillation type: longstanding persistent Qualified Code(s): I48.11 - Longstanding persistent atrial fibrillation (3) Bacteremia due to Gram-positive bacteria Code(s): R78.81 - BACTEREMIA (4) CAD (coronary artery disease) Code(s): I25.10 - ATHSCL HEART DISEASE OF [place] CORONARY ARTERY W/O ANG PCTRS (5) Diabetes Code(s): E11.9 - TYPE 2 DIABETES MELLITUS WITHOUT COMPLICATIONS (6) Elevated INR Code(s): R79.1 - ABNORMAL COAGULATION PROFILE (7) HLD (hyperlipidemia) Code(s): E78.5 - HYPERLIPIDEMIA, UNSPECIFIED (8) S/P AVR (aortic valve replacement) Code(s): Z95.2 - PRESENCE OF PROSTHETIC HEART VALVE (9) Multiple falls Code(s): R29.6 - REPEATED FALLS Assessment/Plan 09/08/2019 Echo: Normal LV and RV size and fxn, tr TR, bioAVR w/o stenosis or regurgitation 03/26/2013 Echo: Normal LV size with mild LVH with normal LV fxn, mod LAE, mild PERI, normal RV size and fxn, aortic bioprosthesis, mild MR, TR RVSP 35-50 mmHg 1. Altered mental status and frequent falls with coag neg staph bacteremia since cleared 2. h/o bovine pericardial AVR for 3. Nonobstructive CAD 4. Persistent afib on coumadin with supratherapeutic INR 3. Hypertensive heart disease 4. Diastolic dysfunction 5. Hyperlipidemia 6. H/o stroke 7. Acute on CKD 8. Severe DJD P:1. Observe off empiric abx course per C&S 2. Dose coumadin per INR 2.0-3.0. 3. Continue ASA 81 qd, Zocor 40 qhs, decrease Lasix 20 bid, Toprol XL 100 bid with monitor diuretic response, renal fxn and electrolytes 4. Thank you for consultative oppportunity, PT and gait training, patient to f/ u with Dr. Joseph Wolf upon d/c.
--- NOTE | 2019-09-08 12:41 | PN ---
Progress Note, Physician History of Present Illness: stable no new issues back to himself cx results noted - Current Medication List Current Medications: Active Medications Acetaminophen (Tylenol -) 650 mg PO Q6H PRN PRN Reason: PAIN LEVEL 6-10 Last Admin: 09/08/19 03:03 Dose: 650 mg Aspirin (Asa -) 81 mg PO DAILY [facility] Last Admin: 09/08/19 10:11 Dose: 81 mg Atorvastatin Calcium (Lipitor -) 20 mg PO HS [facility] Last Admin: 09/07/19 21:03 Dose: 20 mg Furosemide (Lasix -) 20 mg PO BID@0600,1400 [facility] Last Admin: 09/08/19 05:33 Dose: 20 mg Piperacillin Sod/Tazobactam (Sod 3.375 gm/ Dextrose) 50 mls @ 100 mls/hr IVPB Q8H-IV [facility]; Protocol Last Admin: 09/08/19 10:10 Dose: 100 mls/hr Lidocaine (Lidoderm Patch -) 1 patch TP DAILY [facility] Last Admin: 09/08/19 10:11 Dose: Not Given Metoprolol Succinate (Toprol Xl -) 100 mg PO Q2D@1000 [facility] Last Admin: 09/07/19 13:37 Dose: Not Given Metoprolol Succinate (Toprol Xl -) 150 mg PO Q48H [facility] Last Admin: 09/08/19 10:10 Dose: 150 mg Miscellaneous (Lidoderm Patch Removal) 1 each MC DAILY@2200 [facility] Last Admin: 09/07/19 21:04 Dose: 1 each Tramadol HCl (Ultram -) 50 mg PO Q6H PRN PRN Reason: BACK PAIN Last Admin: 09/08/19 10:11 Dose: 50 mg Warfarin Sodium (Coumadin -) 2.5 mg PO DAILY@1800 [facility] Last Admin: 09/06/19 18:38 Dose: 2.5 mg - Objective Vital Signs: Vital Signs Temperature 98.1 F 09/08/19 10:00 Pulse Rate 89 09/08/19 10:00 Respiratory Rate 18 09/08/19 10:00 Blood Pressure 124/69 09/08/19 10:00 O2 Sat by Pulse Oximetry (%) 95 09/08/19 09:00 Constitutional: Yes: No Distress, Calm Cardiovascular: Yes: S1, S2 Respiratory: Yes: Regular, CTA Bilaterally Gastrointestinal: Yes: Normal Bowel Sounds, Soft Musculoskeletal: Yes: WNL Extremities: Yes: WNL Neurological: Yes: Alert, Oriented Psychiatric: Yes: Alert, Oriented Labs: CBC, BMP 09/08/19 07:05 09/08/19 06:55 INR, PTT INR 2.73 (0.83-1.09) H 09/08/19 07:05 Assessment/Plan 8 year old male with a past medical history of CAD (s/p CABG, aortic valve replacement ?type, stent), afib (on coumadin), DM, HTN, CVA, HLD, spinal stenosis admitted for multiple falls. falls gm positive bacteremia fever increased bili avr aaa dm rash plan repeat cx nted will stop all abx rest as per the team
--- NOTE | 2019-09-08 15:14 | ECHO ---
Name: NIK JENKINS Exam:Adult Echocardiogram Study Date: 09/08/2019 01:58 PM Age: 88 yrs Height: 66 in Weight: 183 lb BSA: 1.9 m2 MMode/2D Measurements & Calculations LVLd ap4: 5.8 cm SV(MOD-sp4): 29.0 ml EDV(MOD-sp4): 59.0 ml LVLs ap4: 5.5 cm ESV(MOD-sp4): 30.0 ml Doppler Measurements & Calculations MV V2 max: 137.1 cm/sec Ao V2 max: 220.4 cm/sec MV max P.5 mmHg Ao max P.5 mmHg MV V2 mean: 76.4 cm/sec Ao V2 mean: 140.9 cm/sec MV mean P.9 mmHg Ao mean P.9 mmHg MV V2 VTI: 32.8 cm Ao V2 VTI: 34.6 cm LV V1 max P.8 mmHg TR max konrad: 171.1 cm/sec LV V1 mean P.6 mmHg TR max P.7 mmHg LV V1 max: 83.4 cm/sec LV V1 mean: 56.0 cm/sec LV V1 VTI: 15.8 cm Med Peak E' Konrad: 8.7 cm/sec Lat Peak E' Konrad: 13.3 cm/sec Procedure A complete two-dimensional transthoracic echocardiogram was performed (2D, M-mode, Doppler and color flow Doppler). The study was technically difficult with many images being suboptimal in quality. Left Ventricle The left ventricular size, thickness and function are normal. The left ventricular ejection fraction is normal. Ejection Fraction = 55-60%. No regional wall motion abnormalities noted. Right Ventricle The right ventricle is normal in size and function. Atria Normal left and right atrial size and function. Mitral Valve There is mild to moderate mitral annular calcification. There is no mitral regurgitation noted. Tricuspid Valve There is trace tricuspid regurgitation. There was insufficient TR detected to calculate RV systolic p ressure. Aortic Valve There is a bioprosthetic aortic valve. No hemodynamically significant valvular aortic stenosis. No ao rtic regurgitation is present. Pulmonic Valve There is no pulmonic valvular regurgitation. Great Vessels The aortic root is normal size. Pericardium/Pleura There is no pericardial effusion. Interpretation Summary The study was technically difficult with many images being suboptimal in quality. The left ventricular size, thickness and function are normal The right ventricle is normal in size and function. There is trace tricuspid regurgitation. There is a bioprosthetic aortic valve. MD Juan Carlos Barnes 09/08/2019 03:13 PM
[2019-09-08] MEDS: WARFARIN NA 2.5 MG TABLET (FP) PO SCH (18:04)
[2019-09-08] MEDS: LIDOCAINE PATCH REMOVAL MC SCH (21:23)
[2019-09-08] MEDS: ATORVASTATIN CA 20 MG TABLET (FP) PO SCH (21:23)
[2019-09-09] MEDS: traMADol HCL 50 MG TABLET PO PRN ×2 (02:59→10:17)
[2019-09-09] MEDS: FUROSEMIDE 20 MG TABLET (FP) PO SCH (06:06)
[2019-09-09 07:47] LABS: BASO % 1.7 % (0-2.0); HEMATOCRIT 42.2 % (35.4-49); HEMOGLOBIN 14.3 GM/dL (11.7-16.9); LYMPH % 21.2 % (8-40); MCH 29.1 pg (25.7-33.7); MCHC 33.9 g/dl (32.0-35.9); MEAN CELL VOLUME 85.9 fl (80-96); MEAN PLT VOLUME 7.4 fl (7.5-11.1); MONO % 6.4 % (3.8-10.2); NEUT % 67.7 % (42.8-82.8); PLATELET COUNT 202 K/MM3 (134-434); RBC 4.91 M/mm3 (4.00-5.60); RDW 13.8 % (11.9-15.9); WHITE BLOOD COUNT 5.9 K/mm3 (4.0-10.0)
[2019-09-09 08:13] LABS: ALBUMIN 3.6 g/dl (3.4-5.0); BLOOD UREA NITROGEN 20.8 mg/dL (7-18); CALCIUM 8.7 mg/dL (8.5-10.1); CREATININE 1.3 mg/dL (0.55-1.3); MAGNESIUM 2.3 mg/dL (1.8-2.4); POTASSIUM 3.5 mmol/L (3.5-5.1); TOT PROT 6.6 g/dl (6.4-8.2)
[2019-09-09 08:18] LABS: INR 2.65 (0.83-1.09); PROTHROMBIN TIME (PATIENT) 31.6 SEC (9.7-13.0)
[2019-09-09] MEDS ORDERED: POTASSIUM CHLORIDE TABS 20 MEQ TABLET.ER (FP) PO ONE (08:21)
--- NOTE | 2019-09-09 08:30 | DS ---
Physical Exam: SUBJECTIVE: Patient seen and examined Medically stable for DC home with services. OBJECTIVE: Vital Signs Period Temp Pulse Resp BP Sys/Uribe Pulse Ox Last 24 Hr 97.3 F-98.4 F 87-99 18-20 110-144/55-84 95-95 PHYSICAL EXAM GENERAL: The patient is awake, alert, and fully oriented, in no acute distress. HEAD: Normal with no signs of trauma. EYES: PERRL, extraocular movements intact, sclera anicteric, conjunctiva clear. ENT: Ears normal, nares patent, oropharynx clear without exudates, moist mucous membranes. NECK: Trachea midline, full range of motion, supple. LUNGS: Breath sounds equal, clear to auscultation bilaterally, no wheezes, no crackles, no accessory muscle use. HEART: Regular rate and rhythm, S1, S2 without murmur, rub or gallop. ABDOMEN: Soft, nontender, nondistended, normoactive bowel sounds, no guarding, no rebound, no hepatosplenomegaly, no masses. EXTREMITIES: 2+ pulses, warm, well-perfused, no edema. NEUROLOGICAL: Cranial nerves II through XII grossly intact. Normal speech, gait not observed. PSYCH: Normal mood, normal affect. SKIN: Warm, dry, normal turgor, no rashes or lesions noted. LABS Laboratory Results - last 24 hr 09/08/19 09/09/19 09/09/19 07:05 06:55 06:55 WBC 5.9 RBC 4.91 Hgb 14.3 Hct 42.2 MCV 85.9 MCH 29.1 MCHC 33.9 RDW 13.8 Plt Count 202 MPV 7.4 L Absolute Neuts (auto) 4.0 Neutrophils % 67.7 Lymphocytes % 21.2 Monocytes % 6.4 Eosinophils % 3.0 Basophils % 1.7 Nucleated RBC % 0 PT with INR 32.50 H 31.60 H INR 2.73 H 2.65 H Sodium Potassium Chloride Carbon Dioxide Anion Gap BUN Creatinine Est GFR (CKD-EPI)AfAm Est GFR (CKD-EPI)NonAf Random Glucose Calcium Magnesium Total Bilirubin AST ALT Alkaline Phosphatase Total Protein Albumin 09/09/19 06:55 WBC RBC Hgb Hct MCV MCH MCHC RDW Plt Count MPV Absolute Neuts (auto) Neutrophils % Lymphocytes % Monocytes % Eosinophils % Basophils % Nucleated RBC % PT with INR INR Sodium 138 Potassium 3.5 Chloride 104 Carbon Dioxide 28 Anion Gap 6 L BUN 20.8 H Creatinine 1.3 Est GFR (CKD-EPI)AfAm 56.86 Est GFR (CKD-EPI)NonAf 49.06 Random Glucose 105 Calcium 8.7 Magnesium 2.3 Total Bilirubin 2.0 H AST 26 ALT 12 L Alkaline Phosphatase 84 Total Protein 6.6 Albumin 3.6 HOSPITAL COURSE: Date of Admission:09/05/19 Date of Discharge: 09/09/19 Problem List - Problems (1) Bacteremia due to Gram-positive bacteria Assessment/Plan: remains afebrile BCX with staph epi most likely contaiminant ABX stopped and observed off . No signs of infection Code(s): R78.81 - BACTEREMIA (2) CAD (coronary artery disease) Assessment/Plan: c/w asa, statin,BB Code(s): I25.10 - ATHSCL HEART DISEASE OF [place] CORONARY ARTERY W/O ANG PCTRS (3) Hx of CABG Code(s): Z95.1 - PRESENCE OF AORTOCORONARY BYPASS GRAFT (4) S/P AVR (aortic valve replacement) Assessment/Plan: AVR (t) 3 years ago remains coumadin [place] [facility] [place]22[place]2019 TTE done and no acute pathology Counadin decreased to 2.5mg daily Code(s): Z95.2 - PRESENCE OF PROSTHETIC HEART VALVE (5) Afib Assessment/Plan: AF rate controlled on coumadin Code(s): I48.91 - UNSPECIFIED ATRIAL FIBRILLATION (6) Diabetes Assessment/Plan: BGM AC/HS with novolog sliding scale diabetic diet Code(s): E11.9 - TYPE 2 DIABETES MELLITUS WITHOUT COMPLICATIONS (7) CVA (cerebral vascular accident) Assessment/Plan: HCT negative no residual but with frequent falls seen by neurology Code(s): I63.9 - CEREBRAL INFARCTION, UNSPECIFIED (8) HLD (hyperlipidemia) Assessment/Plan: c/w atrovastatin Code(s): E78.5 - HYPERLIPIDEMIA, UNSPECIFIED (9) Spinal stenosis Assessment/Plan: tramadol prn pain Code(s): M48.00 - SPINAL STENOSIS, SITE UNSPECIFIED (10) Multiple falls Assessment/Plan: working with PT w/c ordered for discharge home Code(s): R29.6 - REPEATED FALLS (11) AMS (altered mental status) Code(s): R41.82 - ALTERED MENTAL STATUS, UNSPECIFIED Qualifiers: Altered mental status type: unspecified Qualified Code(s): R41.82 - Altered mental status, unspecified (12) Prophylactic measure Assessment/Plan: FEN Fluids: adequate PO intake Electrolytes: stable Nutrition: cardiac diet DVT on coumadin Dispo medcially stable for discharge to home with services Code(s): Z29.9 - ENCOUNTER FOR PROPHYLACTIC MEASURES, UNSPECIFIED (13) Elevated INR Assessment/Plan: INR 2.73 restarted coumadin tonight at 2.5 mg continue to monitor fall precautions Code(s): R79.1 - ABNORMAL COAGULATION PROFILE Minutes to complete discharge: 45 Discharge Summary Problems reviewed: Yes Reason For Visit: ALTERED MENTAL STATUS,FALL Current Active Problems AMS (altered mental status) (Acute) Afib (Acute) Bacteremia due to Gram-positive bacteria (Acute) CAD (coronary artery disease) (Acute) CVA (cerebral vascular accident) (Acute) Diabetes (Acute) Elevated INR (Acute) HLD (hyperlipidemia) (Acute) Hx of CABG (Acute) Multiple falls (Acute) Prophylactic measure (Acute) S/P AVR (aortic valve replacement) (Acute) Spinal stenosis (Acute) Hospital Course: HOSPITAL COURSE: Date of Admission:09/05/19 Date of Discharge: 09/09/19 Problem List - Problems (1) Bacteremia due to Gram-positive bacteria Assessment/Plan: remains afebrile BCX with staph epi most likely contaiminant ABX stopped and observed off . No signs of infection Code(s): R78.81 - BACTEREMIA (2) CAD (coronary artery disease) Assessment/Plan: c/w asa, statin,BB Code(s): I25.10 - ATHSCL HEART DISEASE OF [place] CORONARY ARTERY W/O ANG PCTRS (3) Hx of CABG Code(s): Z95.1 - PRESENCE OF AORTOCORONARY BYPASS GRAFT (4) S/P AVR (aortic valve replacement) Assessment/Plan: AVR (t) 3 years ago remains coumadin [place] [facility] [place] 02/22/2019 TTE done and no acute pathology Counadin decreased to 2.5mg daily Code(s): Z95.2 - PRESENCE OF PROSTHETIC HEART VALVE (5) Afib Assessment/Plan: AF rate controlled on coumadin Code(s): I48.91 - UNSPECIFIED ATRIAL FIBRILLATION (6) Diabetes Assessment/Plan: BGM AC/HS with novolog sliding scale diabetic diet Code(s): E11.9 - TYPE 2 DIABETES MELLITUS WITHOUT COMPLICATIONS (7) CVA (cerebral vascular accident) Assessment/Plan: HCT negative no residual but with frequent falls seen by neurology Code(s): I63.9 - CEREBRAL INFARCTION, UNSPECIFIED (8) HLD (hyperlipidemia) Assessment/Plan: c/w atrovastatin Code(s): E78.5 - HYPERLIPIDEMIA, UNSPECIFIED (9) Spinal stenosis Assessment/Plan: tramadol prn pain Code(s): M48.00 - SPINAL STENOSIS, SITE UNSPECIFIED (10) Multiple falls Assessment/Plan: working with PT w/c ordered for discharge home Code(s): R29.6 - REPEATED FALLS (11) AMS (altered mental status) Code(s): R41.82 - ALTERED MENTAL STATUS, UNSPECIFIED Qualifiers: Altered mental status type: unspecified Qualified Code(s): R41.82 - Altered mental status, unspecified (12) Prophylactic measure Assessment/Plan: FEN Fluids: adequate PO intake Electrolytes: stable Nutrition: cardiac diet DVT on coumadin Dispo medcially stable for discharge to home with services Code(s): Z29.9 - ENCOUNTER FOR PROPHYLACTIC MEASURES, UNSPECIFIED (13) Elevated INR Assessment/Plan: INR 2.73 restarted coumadin tonight at 2.5 mg continue to monitor fall precautions Code(s): R79.1 - ABNORMAL COAGULATION PROFILE Condition: Improved - Instructions Diet, Activity, Other Instructions: DISCHARGE YOUR VISIT You came to the hospital because you were falling. You were found to have fevers and an infection in the blood. Antibiotics IV were given and you improved. A Head CT scan was done that was normal and the neurologist saw you and found no neurological issues. An echmocardiogram wasa done that showed the valve replacement had to infection. The Physical therapist saw you an a wheelchair was ordered for you at home. Visiting nurse and physical therapy will see you at your home after discharge. Your INR (coumadin level) was high and your medications was decreased to 2.5 daily. . MEDICATIONS Please continue to take your home medications as prescribed. There was some changes COUMADIN was decreased to 2.5mg daily (have Dr Ruiz adjust the level if needed) Resume all other mediations and doses DIET Continue your home diet ADDITIONAL CARE Please make an appointment to see your primary care provider/Dr Ruiz, 1 week from today. ADDITIONAL INFORMATION Please call 911 or come directly to the emergency department if you experience unusual headache, vision change, shortness of breath, chest pain, numbness, tingling, loss of alertness/awareness, loss of function, unusual bleeding or any alarming symptoms. Thank you for allowing me to care for you. Henri Mast, [facility], [facility] Referrals: Roxanna Moore MD [Primary Care Provider] - 2 Weeks (call for follow up appointment) Disposition: HOME - Home Medications Comprehensive Discharge Medication List: Ambulatory Orders Simvastatin [Zocor -] 40 mg PO DAILY 03/11/13 Aspirin [Aspirin EC] 81 mg PO DAILY #0 tablet. 07/26/13 Furosemide [Lasix -] 20 mg PO BID 09/06/19 Metoprolol Succinate [Toprol XL -] 100 mg PO Q48H 09/06/19 Metoprolol Succinate [Toprol Xl] 150 mg PO Q48H 09/06/19 Tramadol HCl 1 tab PO Q6H PRN 09/06/19 Warfarin Na [Coumadin -] 2.5 mg PO Q48H 09/06/19 Acetaminophen [Tylenol .Regular Strength -] 650 mg PO Q6H PRN tablet 09/09/19 Atorvastatin Ca [Lipitor] 20 mg PO HS tablet 09/09/19 Prescription Drug Monitoring Program (I-STOP) results: I-STOP reviewed and no issues identified Problem List - Problems (1) Bacteremia due to Gram-positive bacteria Code(s): R78.81 - BACTEREMIA (2) CAD (coronary artery disease) Code(s): I25.10 - ATHSCL HEART DISEASE OF [place] CORONARY ARTERY W/O ANG PCTRS (3) Hx of CABG Code(s): Z95.1 - PRESENCE OF AORTOCORONARY BYPASS GRAFT (4) S/P AVR (aortic valve replacement) Code(s): Z95.2 - PRESENCE OF PROSTHETIC HEART VALVE (5) Afib Code(s): I48.91 - UNSPECIFIED ATRIAL FIBRILLATION Qualifiers: Atrial fibrillation type: longstanding persistent Qualified Code(s): I48.11 - Longstanding persistent atrial fibrillation (6) Diabetes Code(s): E11.9 - TYPE 2 DIABETES MELLITUS WITHOUT COMPLICATIONS (7) CVA (cerebral vascular accident) Code(s): I63.9 - CEREBRAL INFARCTION, UNSPECIFIED (8) HLD (hyperlipidemia) Code(s): E78.5 - HYPERLIPIDEMIA, UNSPECIFIED (9) Spinal stenosis Code(s): M48.00 - SPINAL STENOSIS, SITE UNSPECIFIED (10) Multiple falls Code(s): R29.6 - REPEATED FALLS (11) AMS (altered mental status) Code(s): R41.82 - ALTERED MENTAL STATUS, UNSPECIFIED Qualifiers: Altered mental status type: unspecified Qualified Code(s): R41.82 - Altered mental status, unspecified (12) Prophylactic measure Code(s): Z29.9 - ENCOUNTER FOR PROPHYLACTIC MEASURES, UNSPECIFIED (13) Elevated INR Code(s): R79.1 - ABNORMAL COAGULATION PROFILE This patient is new to me today: No Emergency Visit: Yes ED Registration Date: 09/05/19 Care time: The patient presented to the Emergency Department on the above date and was hospitalized for further evaluation of their emergent condition. Critical Care patient: No - Discharge Referral Referred to [facility] Med P.C.: No
--- NOTE | 2019-09-09 08:46 | PN ---
Progress Note (short form) - Note Progress Note: Neurology CHIEF COMPLAINT: fall PCP: Dr. Roxanna Moore HISTORY OF PRESENT ILLNESS: Migel Pantoja is an 88 year old male with a past medical history of CAD (s/p CABG, aortic valve replacement ?type, stent), afib (on coumadin), DM, HTN, CVA, HLD, spinal stenosis, who had multiple recent falls at home and brought to the ED by his daughter for further evaluation. As per ED who obtained history from daughter the patient was noted to have altered mental status where patient was not alert, agitated, and having some hallucinations and was having increased amounts of falls including head hits. On exam, the patient was alert and oriented x3 and recalled the events of his most recent fall where he stated he felt lightheaded, felt his legs give out and fell hitting his head. He denied loss of consciousness or prodromal events such as palpitations, chest pain, shortness of breath, nausea, visual changes. Denied recent illnesses, sick contacts, or travel. He denied abd pain, nausea, vomiting, chest pain, shortness of breath, fever, chills, dizziness, lightheadedness, numbness, tingling, focal weakness, cough. Endorsed constipation and chronic back pain. Ct of head was completed and showed moderate atrophy but no evidence of acute intracranial pathology. Ct of cervical spine also reviewed and demostrated fusion of C4-C5 vertebral bodies with degenerative narrowing at C5-C6 and C6-C7 level and osteophyte complex from C4 down to C7 level. Also, L>R calcified plaques at CCA bifurcation. Consulted for evaluation of altered mental status and again during my visit today he was able to me that he is at [facility] along with the correct month and the year and knows the name of the president as well, appears to be near baseline still. No acute events overnight and patient being planned for discharge. Appears to a been frustrated by like to stay and is happy that he will be going home. Advised medication compliance and fall precautions. Active Medications Acetaminophen (Tylenol -) 650 mg PO Q6H PRN PRN Reason: PAIN LEVEL 6-10 Last Admin: 09/08/19 03:03 Dose: 650 mg Aspirin (Asa -) 81 mg PO DAILY [facility] Last Admin: 09/08/19 10:11 Dose: 81 mg Atorvastatin Calcium (Lipitor -) 20 mg PO HS [facility] Last Admin: 09/08/19 21:23 Dose: 20 mg Furosemide (Lasix -) 20 mg PO BID@0600,1400 [facility] Last Admin: 09/09/19 06:06 Dose: 20 mg Lidocaine (Lidoderm Patch -) 1 patch TP DAILY [facility] Last Admin: 09/08/19 10:11 Dose: Not Given Metoprolol Succinate (Toprol Xl -) 100 mg PO Q2D@1000 [facility] Last Admin: 09/07/19 13:37 Dose: Not Given Metoprolol Succinate (Toprol Xl -) 150 mg PO Q48H [facility] Last Admin: 09/08/19 10:10 Dose: 150 mg Miscellaneous (Lidoderm Patch Removal) 1 each MC DAILY@2200 [facility] Last Admin: 09/08/19 21:23 Dose: 1 each Tramadol HCl (Ultram -) 50 mg PO Q6H PRN PRN Reason: BACK PAIN Last Admin: 09/09/19 02:59 Dose: 50 mg Warfarin Sodium (Coumadin -) 2.5 mg PO DAILY@1800 [facility] Last Admin: 09/08/19 18:04 Dose: 2.5 mg PHYSICAL EXAMINATION Vital Signs Period Temp Pulse Resp BP Sys/Uribe Pulse Ox Last 24 Hr 97.3 F-98.4 F 87-99 18-20 110-144/55-84 95-95 GENERAL: Awake, alert, and fully oriented, in no acute distress. HEAD: Normal with no signs of trauma. EYES: Pupils equal, round and reactive to light, extraocular movements intact, sclera anicteric, conjunctiva clear. EARS, NOSE, THROAT:Oropharynx clear without exudates. Moist mucous membranes. NECK: Normal range of motion, supple without lymphadenopathy, JVD. LUNGS: Breath sounds equal, clear to auscultation bilaterally. No wheezes, and no crackles. No accessory muscle use. HEART: Normal rate and irregular rhythm, normal S1 and S2 without murmur, rub. ABDOMEN: Soft, nontender, not distended, normoactive bowel sounds, no guarding, no rebound, no masses. MUSCULOSKELETAL: Difficulty sitting up secondary to pain UPPER EXTREMITIES: 2+ pulses, warm, well-perfused. No cyanosis. No clubbing. No peripheral edema. LOWER EXTREMITIES: 2+ pulses, warm, well-perfused. No calf tenderness. No peripheral edema. NEUROLOGICAL: Cranial nerves II-XII intact. 5/5 muscle strength upper and lower extremities bilaterally. Sensation intact to gross touch bilaterally. PSYCHIATRIC: Cooperative. Good eye contact. SKIN: Warm, dry, normal turgor, no rashes or lesions noted, normal capillary refill. CBCD WBC 5.9 K/mm3 (4.0-10.0) 09/09/19 06:55 RBC 4.91 M/mm3 (4.00-5.60) 09/09/19 06:55 Hgb 14.3 GM/dL (11.7-16.9) 09/09/19 06:55 Hct 42.2 % (35.4-49) 09/09/19 06:55 MCV 85.9 fl (80-96) 09/09/19 06:55 MCHC 33.9 g/dl (32.0-35.9) 09/09/19 06:55 RDW 13.8 % (11.9-15.9) 09/09/19 06:55 Plt Count 202 K/MM3 (134-434) 09/09/19 06:55 MPV 7.4 fl (7.5-11.1) L 09/09/19 06:55 CMP Sodium 138 mmol/L (136-145) 09/09/19 06:55 Potassium 3.5 mmol/L (3.5-5.1) 09/09/19 06:55 Chloride 104 mmol/L (98-107) 09/09/19 06:55 Carbon Dioxide 28 mmol/L (21-32) 09/09/19 06:55 Anion Gap 6 MMOL/L (8-16) L 09/09/19 06:55 BUN 20.8 mg/dL (7-18) H 09/09/19 06:55 Creatinine 1.3 mg/dL (0.55-1.3) 09/09/19 06:55 Random Glucose 105 mg/dL (74-106) 09/09/19 06:55 Calcium 8.7 mg/dL (8.5-10.1) 09/09/19 06:55 Total Bilirubin 2.0 mg/dL (0.2-1) H 09/09/19 06:55 AST 26 U/L (15-37) 09/09/19 06:55 ALT 12 U/L (13-61) L 09/09/19 06:55 Alkaline Phosphatase 84 U/L (45-117) 09/09/19 06:55 Total Protein 6.6 g/dl (6.4-8.2) 09/09/19 06:55 Albumin 3.6 g/dl (3.4-5.0) 09/09/19 06:55 CARDIAC ENZYMES Creatine Kinase 126 U/L (26-308) 09/05/19 18:32 Troponin I 0.06 ng/ml (0.00-0.05) H 09/06/19 07:04 ASSESSMENT/PLAN: Migel Pantoja is an 88 year old male with a past medical history of CAD (s/p CABG, aortic valve replacement ?type, stent), afib (on coumadin), DM, HTN, CVA, HLD, spinal stenosis, who had multiple recent falls at home and brought to the ED by his daughter for further evaluation. As per ED who obtained history from daughter the patient was noted to have altered mental status where patient was not alert, agitated, and having some hallucinations and was having increased amounts of falls including head hits. On exam, the patient was alert and oriented x3 and recalled the events of his most recent fall where he stated he felt lightheaded, felt his legs give out and fell hitting his head. He denied loss of consciousness or prodromal events such as palpitations, chest pain, shortness of breath, nausea, visual changes. Denied recent illnesses, sick contacts, or travel. He denied abd pain, nausea, vomiting, chest pain, shortness of breath, fever, chills, dizziness, lightheadedness, numbness, tingling, focal weakness, cough. Endorsed constipation and chronic back pain. Ct of head was completed and showed moderate atrophy but no evidence of acute intracranial pathology. Ct of cervical spine also reviewed and demostrated fusion of C4-C5 vertebral bodies with degenerative narrowing at C5-C6 and C6-C7 level and osteophyte complex from C4 down to C7 level. Also, L>R calcified plaques at CCA bifurcation. Consulted for evaluation of altered mental status and again during my visit today he was able to me that he is at [facility] along with the correct month and the year and knows the name of the president as well, appears to be near baseline still. No acute events overnight and patient being planned for discharge. Appears to a been frustrated by like to stay and is happy that he will be going home. Advised medication compliance and fall precautions. No objection to discharge
[2019-09-09] MEDS: ASPIRIN 81 MG CHEWABLE TABLETS PO SCH (09:09)
[2019-09-09] MEDS: LIDOCAINE 5% TOPICAL PATCH TP SCH (09:09)
[2019-09-09 10:55] VITALS: BP 127/75; PULSE 87; TEMP 98.5
--- NOTE | 2019-09-09 11:43 | PN ---
Progress Note, Physician History of Present Illness: Altered mental status and more frequent falls improved with PT, transient coag neg staph bacteremia since cleared. Sensorium has since improved to baseline. - Current Medication List Current Medications: Active Medications Acetaminophen (Tylenol -) 650 mg PO Q6H PRN PRN Reason: PAIN LEVEL 6-10 Last Admin: 09/08/19 03:03 Dose: 650 mg Aspirin (Asa -) 81 mg PO DAILY [facility] Last Admin: 09/09/19 09:09 Dose: 81 mg Atorvastatin Calcium (Lipitor -) 20 mg PO HS [facility] Last Admin: 09/08/19 21:23 Dose: 20 mg Furosemide (Lasix -) 20 mg PO BID@0600,1400 [facility] Last Admin: 09/09/19 06:06 Dose: 20 mg Lidocaine (Lidoderm Patch -) 1 patch TP DAILY [facility] Last Admin: 09/09/19 09:09 Dose: Not Given Metoprolol Succinate (Toprol Xl -) 100 mg PO Q2D@1000 [facility] Last Admin: 09/09/19 09:09 Dose: 100 mg Metoprolol Succinate (Toprol Xl -) 150 mg PO Q48H [facility] Last Admin: 09/08/19 10:10 Dose: 150 mg Miscellaneous (Lidoderm Patch Removal) 1 each MC DAILY@2200 [facility] Last Admin: 09/08/19 21:23 Dose: 1 each Tramadol HCl (Ultram -) 50 mg PO Q6H PRN PRN Reason: BACK PAIN Last Admin: 09/09/19 10:17 Dose: 50 mg Warfarin Sodium (Coumadin -) 2.5 mg PO DAILY@1800 [facility] Last Admin: 09/08/19 18:04 Dose: 2.5 mg - Objective Vital Signs: Vital Signs Temperature 98.5 F 09/09/19 10:00 Pulse Rate 87 09/09/19 10:00 Respiratory Rate 20 09/09/19 10:00 Blood Pressure 127/75 09/09/19 10:00 O2 Sat by Pulse Oximetry (%) 97 09/09/19 09:00 Constitutional: Yes: No Distress, Calm, Thin Neck: Yes: Supple Cardiovascular: Yes: Pulse Irregular Respiratory: Yes: Regular, CTA Bilaterally Gastrointestinal: Yes: Normal Bowel Sounds, Soft Edema: No Labs: CBC, BMP 09/09/19 06:55 09/09/19 06:55 INR, PTT INR 2.65 (0.83-1.09) H 09/09/19 06:55 Problem List - Problems (1) AMS (altered mental status) Code(s): R41.82 - ALTERED MENTAL STATUS, UNSPECIFIED Qualifiers: Altered mental status type: unspecified Qualified Code(s): R41.82 - Altered mental status, unspecified (2) Afib Code(s): I48.91 - UNSPECIFIED ATRIAL FIBRILLATION Qualifiers: Atrial fibrillation type: longstanding persistent Qualified Code(s): I48.11 - Longstanding persistent atrial fibrillation (3) Bacteremia due to Gram-positive bacteria Code(s): R78.81 - BACTEREMIA (4) CAD (coronary artery disease) Code(s): I25.10 - ATHSCL HEART DISEASE OF [place] CORONARY ARTERY W/O ANG PCTRS (5) Diabetes Code(s): E11.9 - TYPE 2 DIABETES MELLITUS WITHOUT COMPLICATIONS (6) Elevated INR Code(s): R79.1 - ABNORMAL COAGULATION PROFILE (7) HLD (hyperlipidemia) Code(s): E78.5 - HYPERLIPIDEMIA, UNSPECIFIED (8) S/P AVR (aortic valve replacement) Code(s): Z95.2 - PRESENCE OF PROSTHETIC HEART VALVE (9) Multiple falls Code(s): R29.6 - REPEATED FALLS Assessment/Plan 09/08/2019 Echo: Normal LV and RV size and fxn, tr TR, bioAVR w/o stenosis or regurgitation 03/26/2013 Echo: Normal LV size with mild LVH with normal LV fxn, mod LAE, mild PERI, normal RV size and fxn, aortic bioprosthesis, mild MR, TR RVSP 35-50 mmHg 1. Altered mental status and frequent falls with coag neg staph bacteremia since cleared 2. h/o bovine pericardial AVR for 3. Nonobstructive CAD 4. Persistent afib on coumadin with therapeutic INR 3. Hypertensive heart disease 4. Diastolic dysfunction 5. Hyperlipidemia 6. H/o stroke 7. Acute on CKD resolved 8. Severe DJD P:1. Observe off empiric abx course per C&S 2. Dose coumadin per INR 2.0-3.0. 3. Continue ASA 81 qd, Lipitor 20 qhs, decreased Lasix 20 bid, Toprol XL 100/ 150 qd with monitor diuretic response, renal fxn and electrolytes 4. PT and gait training, patient to f/u with Dr. Joseph Wolf of [facility] upon d /c.
--- NOTE | 2019-09-09 12:08 | PN ---
Progress Note, Physician History of Present Illness: stable no new issues back to himself - Current Medication List Current Medications: Active Medications Acetaminophen (Tylenol -) 650 mg PO Q6H PRN PRN Reason: PAIN LEVEL 6-10 Last Admin: 09/08/19 03:03 Dose: 650 mg Aspirin (Asa -) 81 mg PO DAILY [facility] Last Admin: 09/09/19 09:09 Dose: 81 mg Atorvastatin Calcium (Lipitor -) 20 mg PO HS [facility] Last Admin: 09/08/19 21:23 Dose: 20 mg Furosemide (Lasix -) 20 mg PO BID@0600,1400 [facility] Last Admin: 09/09/19 06:06 Dose: 20 mg Lidocaine (Lidoderm Patch -) 1 patch TP DAILY [facility] Last Admin: 09/09/19 09:09 Dose: Not Given Metoprolol Succinate (Toprol Xl -) 100 mg PO Q2D@1000 [facility] Last Admin: 09/09/19 09:09 Dose: 100 mg Metoprolol Succinate (Toprol Xl -) 150 mg PO Q48H [facility] Last Admin: 09/08/19 10:10 Dose: 150 mg Miscellaneous (Lidoderm Patch Removal) 1 each MC DAILY@2200 [facility] Last Admin: 09/08/19 21:23 Dose: 1 each Tramadol HCl (Ultram -) 50 mg PO Q6H PRN PRN Reason: BACK PAIN Last Admin: 09/09/19 10:17 Dose: 50 mg Warfarin Sodium (Coumadin -) 2.5 mg PO DAILY@1800 [facility] Last Admin: 09/08/19 18:04 Dose: 2.5 mg - Objective Vital Signs: Vital Signs Temperature 98.5 F 09/09/19 10:00 Pulse Rate 87 09/09/19 10:00 Respiratory Rate 20 09/09/19 10:00 Blood Pressure 127/75 09/09/19 10:00 O2 Sat by Pulse Oximetry (%) 97 09/09/19 09:00 Constitutional: Yes: No Distress, Calm Neck: Yes: Supple, Trachea Midline Cardiovascular: Yes: S1, S2 Respiratory: Yes: Regular, CTA Bilaterally Gastrointestinal: Yes: Normal Bowel Sounds, Soft Musculoskeletal: Yes: WNL Extremities: Yes: WNL Neurological: Yes: Alert, Oriented Psychiatric: Yes: Alert, Oriented Labs: CBC, BMP 09/09/19 06:55 01/17/20 06:55 INR, PTT INR 2.65 (0.83-1.09) H 09/09/19 06:55 Assessment/Plan 8 year old male with a past medical history of CAD (s/p CABG, aortic valve replacement ?type, stent), afib (on coumadin), DM, HTN, CVA, HLD, spinal stenosis admitted for multiple falls. falls gm positive bacteremia fever increased bili avr aaa dm rash plan repeat cx nted physio rest as per the team
== END 2019-09-09 12:47 | disposition home health service (06) | DRG 871 ==
LOC: JER 17:38 → JERBED 22:22 → J7W 09-07 04:46
PROVIDERS: ADMIT Internal Medicine; ATTEND Nurse Practitioner Acute Care
DX: R78.81 Bacteremia (principal); G93.41 Metabolic encephalopathy; I48.19 Other persistent atrial fibrillation; R29.6 Repeated falls; R50.9 Fever, unspecified; E11.9 Type 2 diabetes mellitus without complications; N18.9 Chronic kidney disease, unspecified; E78.5 Hyperlipidemia, unspecified; I71.4 Abdominal aortic aneurysm, without rupture; I25.10 Atherosclerotic heart disease of native coronary artery without angina pectoris; Z95.1 Presence of aortocoronary bypass graft; R41.82 Altered mental status, unspecified; I13.10 Hypertensive heart and chronic kidney disease without heart failure, with stage 1 through stage 4 chronic kidney disease, or unspecified chronic kidney disease; M19.90 Unspecified osteoarthritis, unspecified site; M48.00 Spinal stenosis, site unspecified
CPT/HCPCS: 36415; 70450-TC; 71045-TC-FY; 72125-TC; 72170-TC-FY; 74177-TC; 80053; 80307; 81003; 82140; 82248; 82550; 82607; 82803; 82962; 83605; 83690; 83735; 84100; 84443; 84484; 85025; 85610; 85730; 86593; 87040; 87086; 87186; 87804; 93005; 93010; 93306-TC; 97116-GP; 97162-GP; 99285-25

== ENCOUNTER 2021-07-23 11:40 | Inpatient (IN) | payer BC ==
[2021-07-23 12:06] VITALS: BMI 33.5
[2021-07-23] MEDS ORDERED: METOPROLOL TARTRATE 5 MG/5 ML VIAL IVPUSH ONE ×3 (12:40→17:46)
[2021-07-23] MEDS ORDERED: METOPROLOL TARTRATE 5 MG/5 ML VIAL ONE ×2 (12:48→15:51)
[2021-07-23 12:59] LABS: HEMATOCRIT 37.3 % (35.4-49); HEMOGLOBIN 12.3 GM/dL (11.7-16.9); MCH 31.7 pg (25.7-33.7); MEAN CELL VOLUME 96.1 fl (80-96); MEAN PLT VOLUME 7.4 fl (7.5-11.1); PLATELET COUNT 179 10^3/uL (134-434); RBC 3.89 M/mm3 (4.00-5.60)
[2021-07-23] MEDS ORDERED: oxyCODONE HCL 5 MG TABLET PO ONE (12:59)
[2021-07-23 13:12] LABS: PROTHROMBIN TIME (PATIENT) 70.7 SEC (9.7-13.0)
[2021-07-23 13:14] LABS: ACTIVATED PTT 46.5 SECONDS (25.2-36.5)
[2021-07-23] MEDS ORDERED: SODIUM CHLORIDE 500 ML IV STA (13:15)
[2021-07-23 13:23] LABS: INR 5.94 (0.83-1.09)
[2021-07-23] MEDS ORDERED: oxyCODONE HCL 5 MG TABLET ONE (13:29)
[2021-07-23 13:46] LABS: CALCIUM 8.5 mg/dL (8.5-10.1)
[2021-07-23 13:47] LABS: ALBUMIN 2.5 g/dl (3.4-5.0); BLOOD UREA NITROGEN 37.7 mg/dL (7-18)
[2021-07-23 13:50] LABS: CREATININE 2.1 mg/dL (0.55-1.3)
[2021-07-23 13:51] LABS: BILIRUBIN,TOTAL 1.4 mg/dL (0.2-1); TOT PROT 6.2 g/dl (6.4-8.2)
[2021-07-23 14:05] LABS: ANISOCYTOSIS 1+; MACROCYTOSIS 1+; PLATELET ESTIMATE NORMAL
[2021-07-23 14:18] LABS: LACTIC ACID 3.1 mmol/L (0.4-2.0)
[2021-07-23 17:12] LABS: EPI CELLS 4 /uL (0-25.1); HYALINE CASTS 7 /uL (0-3.1); URINE APPEARANCE CLEAR; URINE BACTERIA 4 /uL (0-1359); URINE BILIRUBIN NEGATIVE (NEGATIVE); URINE COLOR YELLOW; URINE GLUCOSE (UA) NEGATIVE (NEGATIVE); URINE KETONE NEGATIVE (NEGATIVE); URINE LEUK ESTERASE 1+ (NEGATIVE); URINE NITRITE NEGATIVE (NEGATIVE); URINE PROTEIN TRACE (NEGATIVE); URINE RBC 8 /uL (0-23.9); URINE WBC 5 /uL (0-25.8)
[2021-07-23] MEDS ORDERED: CEFTRIAXONE 1 GM in DEXTROSE 5%-WATER - 100 ML IVPB ONE (17:14)
[2021-07-23] MEDS ORDERED: AZITHROMYCIN IVPB 500 MG in DEXTROSE 5%-WATER - 250 ML IVPB ONE (17:14)
[2021-07-23] MEDS ORDERED: CEFTRIAXONE 1 GM/50 ML BAG ONE (17:35)
[2021-07-23] MEDS ORDERED: AZITHROMYCIN IVPB 500 MG/250 ML BAG IVPB ONE (17:35)
[2021-07-23] MEDS ORDERED: dilTIAZem HCL 50 MG/10 ML - 10 ML VIAL IVPUSH ONE (17:51)
[2021-07-23] MEDS ORDERED: dilTIAZem HCL 125 MG/25 ML - 25 ML VIAL ONE (18:02)
[2021-07-23 20:25] LABS: PROTHROMBIN TIME (PATIENT) 83.4 SEC (9.7-13.0)
[2021-07-23] MEDS: SODIUM CHLORIDE 1,000 ML IV SCH (20:34)
[2021-07-23 20:40] LABS: INR 6.99 (0.83-1.09)
[2021-07-23] MEDS ORDERED: PIPERACILLIN/TAZOB 2.25 GM 2.25 GM in DEXTROSE 5%-WATER - 50 ML IVPB SCH (21:00)
[2021-07-23] MEDS ORDERED: LORazepam 2 MG/ML SDV VIAL IM ONE (21:49)
[2021-07-23] MEDS ORDERED: INSULIN SLIDING SCALE (NOVOLOG) 1 VIAL SQ SCH (22:00)
[2021-07-23] MEDS ORDERED: PIPERACILLIN/TAZOBACTAM 2.25 GM VIAL IVPB ONE (22:49)
[2021-07-23] MEDS ORDERED: DEXTROSE 5%-WATER - 50 ML IVPB ONE (22:50)
[2021-07-23] MEDS: PIPERACILLIN/TAZOB 2.25 GM 2.25 GM in DEXTROSE 5%-WATER - 50 ML IVPB SCH (23:59)
[2021-07-24] MEDS: dilTIAZem HCL 30 MG TABLET PO SCH ×2 (00:10→07:01)
[2021-07-24] MEDS ORDERED: dilTIAZem HCL 50 MG/10 ML - 10 ML VIAL IVPUSH ONE ×2 (00:21→09:34)
[2021-07-24] MEDS ORDERED: PIPERACILLIN/TAZOBACTAM 2.25 GM VIAL IVPB ONE ×3 (01:23→14:08)
[2021-07-24] MEDS ORDERED: DEXTROSE 5%-WATER - 50 ML IVPB ONE ×4 (01:23→18:26)
[2021-07-24] MEDS: PIPERACILLIN/TAZOB 2.25 GM 2.25 GM in DEXTROSE 5%-WATER - 50 ML IVPB SCH ×3 (02:03→14:13)
[2021-07-24] MEDS: INSULIN SLIDING SCALE (NOVOLOG) 1 VIAL SQ SCH ×5 (07:01→21:29)
[2021-07-24 08:16] LABS: BASO % 0.2 % (0-2.0); HEMATOCRIT 34.6 % (35.4-49); HEMOGLOBIN 11.4 GM/dL (11.7-16.9); LYMPH % 9.1 % (8-40); MCH 32.4 pg (25.7-33.7); MCHC 33.1 g/dl (32.0-35.9); MEAN CELL VOLUME 98.1 fl (80-96); MEAN PLT VOLUME 7.3 fl (7.5-11.1); MONO % 5.5 % (3.8-10.2); NEUT % 85.2 % (42.8-82.8); PLATELET COUNT 134 10^3/uL (134-434); RBC 3.53 M/mm3 (4.00-5.60); WHITE BLOOD COUNT 7.2 K/mm3 (4.0-10.0)
[2021-07-24 08:45] LABS: BILIRUBIN,TOTAL 1.5 mg/dL (0.2-1)
[2021-07-24] MEDS ORDERED: METOPROLOL TARTRATE 5 MG/5 ML VIAL IVPUSH ONE (08:45)
[2021-07-24 08:46] LABS: BLOOD UREA NITROGEN 26.6 mg/dL (7-18)
[2021-07-24 08:48] LABS: CREATININE 1.4 mg/dL (0.55-1.3); PHOSPHOROUS 2.7 mg/dL (2.5-4.9); TOT PROT 4.7 g/dl (6.4-8.2)
[2021-07-24 08:50] LABS: CALCIUM 7.9 mg/dL (8.5-10.1); MAGNESIUM 2.1 mg/dL (1.8-2.4)
[2021-07-24 08:56] LABS: ALBUMIN 1.9 g/dl (3.4-5.0)
[2021-07-24 08:59] LABS: INR 7.69 (0.83-1.09); PROTHROMBIN TIME (PATIENT) 87.9 SEC (9.7-13.0)
[2021-07-24] MEDS: dilTIAZem HCL 50 MG/10 ML - 10 ML VIAL IVPUSH PRN (10:43)
[2021-07-24] MEDS: ASPIRIN 81 MG CHEWABLE TABLETS PO SCH (10:56)
[2021-07-24] MEDS: ESCITALOPRAM OXALATE 10 MG TABLET PO SCH (10:56)
[2021-07-24] MEDS: AMMONIUM LACTATE 12% LOTION 225 GM BOTTLE TP SCH ×2 (10:59→21:29)
[2021-07-24] MEDS: SODIUM CHLORIDE 1,000 ML IV SCH ×2 (12:14→19:50)
[2021-07-24] MEDS ORDERED: PT OWN MED DRAWER 7, Y5N ONE (14:21)
[2021-07-24] MEDS ORDERED: POTASSIUM CHLORIDE TABS 20 MEQ TABLET.ER (FP) PO ONE (15:57)
[2021-07-24] MEDS: KCL 10 MEQ IVPB 10 MEQ/100 ML INFUS.BAG IVPB SCH ×2 (17:01→18:44)
[2021-07-24] MEDS ORDERED: PIPERACILLIN/TAZOBACTAM 3.375 GM VIAL IVPB ONE (18:26)
[2021-07-24] MEDS: PIPERACILLIN/TAZOB 3.375 GM 3.375 GM in DEXTROSE 5%-WATER - 50 ML IVPB SCH (18:42)
[2021-07-24] MEDS: ACETAMINOPHEN 325 MG TABLET (FP) PO PRN (21:28)
[2021-07-24] MEDS: ATORVASTATIN CA 20 MG TABLET (FP) PO SCH ×2 (21:28)
[2021-07-25] MEDS ORDERED: DEXTROSE 5%-WATER - 50 ML IVPB ONE ×3 (01:57→17:42)
[2021-07-25] MEDS ORDERED: PIPERACILLIN/TAZOBACTAM 3.375 GM VIAL IVPB ONE ×3 (01:57→17:41)
[2021-07-25] MEDS: PIPERACILLIN/TAZOB 3.375 GM 3.375 GM in DEXTROSE 5%-WATER - 50 ML IVPB SCH ×3 (02:40→17:49)
[2021-07-25] MEDS: INSULIN SLIDING SCALE (NOVOLOG) 1 VIAL SQ SCH ×4 (06:06→21:07)
[2021-07-25] MEDS ORDERED: METOPROLOL TARTRATE 5 MG/5 ML VIAL ONE (09:38)
[2021-07-25] MEDS: ESCITALOPRAM OXALATE 10 MG TABLET PO SCH (09:47)
[2021-07-25] MEDS: ASPIRIN 81 MG CHEWABLE TABLETS PO SCH (09:48)
[2021-07-25] MEDS: METOPROLOL TARTRATE 5 MG/5 ML VIAL IVPUSH PRN ×2 (09:49→18:09)
[2021-07-25 10:48] LABS: BASO % 0.2 % (0-2.0); EOS % 0.2 % (0-4.5); HEMATOCRIT 35.9 % (35.4-49); HEMOGLOBIN 11.7 GM/dL (11.7-16.9); LYMPH % 5.7 % (8-40); MCH 32.2 pg (25.7-33.7); MCHC 32.5 g/dl (32.0-35.9); MEAN CELL VOLUME 99.1 fl (80-96); MEAN PLT VOLUME 7.3 fl (7.5-11.1); MONO % 6.7 % (3.8-10.2); NEUT % 87.2 % (42.8-82.8); PLATELET COUNT 144 10^3/uL (134-434); RBC 3.62 M/mm3 (4.00-5.60); RDW 18.5 % (11.9-15.9); WHITE BLOOD COUNT 6.9 K/mm3 (4.0-10.0)
[2021-07-25] MEDS: AMMONIUM LACTATE 12% LOTION 225 GM BOTTLE TP SCH ×2 (10:49→21:06)
[2021-07-25 10:54] LABS: PROTHROMBIN TIME (PATIENT) 78.2 SEC (9.7-13.0)
[2021-07-25 11:08] LABS: INR 6.56 (0.83-1.09)
[2021-07-25 11:17] LABS: BLOOD UREA NITROGEN 19.5 mg/dL (7-18); MAGNESIUM 2.3 mg/dL (1.8-2.4)
[2021-07-25 11:20] LABS: CREATININE 1.1 mg/dL (0.55-1.3); PHOSPHOROUS 2.4 mg/dL (2.5-4.9)
[2021-07-25 11:24] LABS: BILIRUBIN,TOTAL 1.6 mg/dL (0.2-1)
[2021-07-25] MEDS ORDERED: ACETAMINOPHEN 1000 MG/100 ML VIAL IVPB ONE (12:28)
[2021-07-25] MEDS ORDERED: LORazepam 2 MG/ML SDV VIAL IVPUSH ONE (12:29)
[2021-07-25] MEDS: dilTIAZem HCL 50 MG/10 ML - 10 ML VIAL IVPUSH PRN (14:13)
[2021-07-25] MEDS: ATORVASTATIN CA 20 MG TABLET (FP) PO SCH (21:06)
[2021-07-26] MEDS ORDERED: DEXTROSE 5%-WATER - 50 ML IVPB ONE ×3 (00:44→13:59)
[2021-07-26] MEDS ORDERED: PIPERACILLIN/TAZOBACTAM 3.375 GM VIAL IVPB ONE ×2 (00:44→09:16)
[2021-07-26] MEDS: dilTIAZem HCL 50 MG/10 ML - 10 ML VIAL IVPUSH PRN (00:46)
[2021-07-26] MEDS: PIPERACILLIN/TAZOB 3.375 GM 3.375 GM in DEXTROSE 5%-WATER - 50 ML IVPB SCH ×2 (01:06→09:24)
[2021-07-26] MEDS: INSULIN SLIDING SCALE (NOVOLOG) 1 VIAL SQ SCH ×4 (06:08→21:45)
[2021-07-26 07:16] LABS: BASO % 0.2 % (0-2.0); EOS % 0.5 % (0-4.5); HEMATOCRIT 33.3 % (35.4-49); HEMOGLOBIN 11.2 GM/dL (11.7-16.9); LYMPH % 11.4 % (8-40); MCH 32.8 pg (25.7-33.7); MCHC 33.7 g/dl (32.0-35.9); MEAN CELL VOLUME 97.4 fl (80-96); MEAN PLT VOLUME 6.9 fl (7.5-11.1); NEUT % 80.9 % (42.8-82.8); PLATELET COUNT 154 10^3/uL (134-434); RBC 3.42 M/mm3 (4.00-5.60); RDW 17.8 % (11.9-15.9)
[2021-07-26 08:34] LABS: SODIUM 143 mmol/L (136-145)
[2021-07-26 08:37] LABS: ANION GAP 8 MMOL/L (8-16); BLOOD UREA NITROGEN 16.5 mg/dL (7-18); CALCIUM 8.1 mg/dL (8.5-10.1); CHLORIDE 111 mmol/L (98-107); CO2 24 mmol/L (21-32); CREATININE 1.1 mg/dL (0.55-1.3); GLUCOSE,RANDOM 103 mg/dL (74-106); MAGNESIUM 2.2 mg/dL (1.8-2.4); PHOSPHOROUS 2.3 mg/dL (2.5-4.9)
[2021-07-26 08:56] LABS: ERYTHROCYTE SEDIMENTATION RATE 16 mm/hr (0-20)
[2021-07-26] MEDS: ESCITALOPRAM OXALATE 10 MG TABLET PO SCH (09:23)
[2021-07-26] MEDS ORDERED: POTASSIUM CHLORIDE TABS 20 MEQ TABLET.ER (FP) PO ONE (10:00)
[2021-07-26] MEDS: KCL 10 MEQ IVPB 10 MEQ/100 ML INFUS.BAG IVPB SCH ×2 (10:31→12:18)
[2021-07-26] MEDS: AMMONIUM LACTATE 12% LOTION 225 GM BOTTLE TP SCH ×2 (11:00→21:46)
[2021-07-26] MEDS ORDERED: AMIODARONE HCL 150 MG/3 ML VIAL IVPUSH ONE (13:15)
[2021-07-26] MEDS ORDERED: cefTRIAXone SODIUM 1 GM VIAL ONE (13:58)
[2021-07-26] MEDS: CEFTRIAXONE 1 GM in DEXTROSE 5%-WATER - 50 ML IVPB SCH (14:00)
[2021-07-26] MEDS ORDERED: AMIODARONE IN DEXTROSE,ISO-OSM 150 MG/100 ML BAG IVPB ONE (14:00)
[2021-07-26] MEDS ORDERED: AMIODARONE HCL INJECTION 150 MG in DEXTROSE 5%-WATER - 100 ML IVPB ONE (14:00)
[2021-07-26 14:06] LABS: PROTHROMBIN TIME (PATIENT) 48.7 SEC (9.7-13.0)
[2021-07-26] MEDS ORDERED: AMIODARONE IN DEXTROSE,ISO-OSM 360 MG/200 ML BAG IVPB SCH (14:10)
[2021-07-26 14:55] LABS: INR 4.28 (0.83-1.09)
[2021-07-26] MEDS ORDERED: PT OWN MED DRAWER 7, Y5N ONE (14:57)
[2021-07-26] MEDS ORDERED: guaiFENesin/D-METHORPHAN HB 10 ML UNIT-DOSE CUPS PO PRN (18:35)
[2021-07-26] MEDS ORDERED: FUROSEMIDE 40 MG/4 ML INJECTABLE VIAL IVPUSH ONE (18:54)
[2021-07-26] MEDS: ATORVASTATIN CA 20 MG TABLET (FP) PO SCH (21:46)
[2021-07-27] MEDS: INSULIN SLIDING SCALE (NOVOLOG) 1 VIAL SQ SCH ×4 (06:19→21:31)
[2021-07-27 08:11] LABS: HEMATOCRIT 33.3 % (35.4-49); MCH 31.9 pg (25.7-33.7); MCHC 32.9 g/dl (32.0-35.9); MEAN CELL VOLUME 96.8 fl (80-96); MEAN PLT VOLUME 6.8 fl (7.5-11.1); PLATELET COUNT 172 10^3/uL (134-434); RBC 3.44 M/mm3 (4.00-5.60); RDW 18.4 % (11.9-15.9); WHITE BLOOD COUNT 6.7 K/mm3 (4.0-10.0)
[2021-07-27 08:24] LABS: INR 3.29 (0.83-1.09)
[2021-07-27 08:34] LABS: BLOOD UREA NITROGEN 13.4 mg/dL (7-18)
[2021-07-27 08:35] LABS: MAGNESIUM 2.2 mg/dL (1.8-2.4)
[2021-07-27 08:38] LABS: PHOSPHOROUS 2.3 mg/dL (2.5-4.9)
[2021-07-27] MEDS ORDERED: cefTRIAXone SODIUM 1 GM VIAL ONE (09:23)
[2021-07-27] MEDS ORDERED: DEXTROSE 5%-WATER - 50 ML IVPB ONE (09:23)
[2021-07-27 09:28] LABS: ANISOCYTOSIS 1+; MACROCYTOSIS 1+; PLATELET ESTIMATE NORMAL
[2021-07-27] MEDS: ESCITALOPRAM OXALATE 10 MG TABLET PO SCH (09:46)
[2021-07-27] MEDS: CEFTRIAXONE 1 GM in DEXTROSE 5%-WATER - 50 ML IVPB SCH (10:13)
[2021-07-27] MEDS: AMMONIUM LACTATE 12% LOTION 225 GM BOTTLE TP SCH ×2 (10:14→21:31)
[2021-07-27] MEDS: ACETAMINOPHEN 325 MG TABLET (FP) PO PRN ×2 (10:21→21:30)
[2021-07-27] MEDS: AMIODARONE HCL 200 MG TABLET PO SCH ×2 (14:07→21:29)
[2021-07-27] MEDS: METOPROLOL TARTRATE 50 MG TABLET (FP) PO SCH ×2 (14:07→21:30)
[2021-07-27] MEDS: ATORVASTATIN CA 20 MG TABLET (FP) PO SCH (21:30)
[2021-07-27] MEDS: NAPH,MB-DB/K PH,MBDB POWDER PACKET PO SCH (21:31)
[2021-07-28] MEDS: INSULIN SLIDING SCALE (NOVOLOG) 1 VIAL SQ SCH ×4 (06:31→23:45)
[2021-07-28] MEDS: METOPROLOL TARTRATE 50 MG TABLET (FP) PO SCH ×3 (06:31→23:45)
[2021-07-28] MEDS: ACETAMINOPHEN 325 MG TABLET (FP) PO PRN ×2 (06:36→19:10)
[2021-07-28 06:57] LABS: INR 2.47 (0.83-1.09); PROTHROMBIN TIME (PATIENT) 29.2 SEC (9.7-13.0)
[2021-07-28 07:03] LABS: BASO % 0.3 % (0-2.0); EOS % 1.1 % (0-4.5); HEMATOCRIT 31.9 % (35.4-49); HEMOGLOBIN 10.6 GM/dL (11.7-16.9); LYMPH % 10.4 % (8-40); MCH 32.1 pg (25.7-33.7); MCHC 33.3 g/dl (32.0-35.9); MEAN CELL VOLUME 96.4 fl (80-96); MEAN PLT VOLUME 6.8 fl (7.5-11.1); MONO % 6.2 % (3.8-10.2); PLATELET COUNT 232 10^3/uL (134-434); RBC 3.31 M/mm3 (4.00-5.60); RDW 18.2 % (11.9-15.9); WHITE BLOOD COUNT 8.1 K/mm3 (4.0-10.0)
[2021-07-28 07:13] LABS: BLOOD UREA NITROGEN 11.1 mg/dL (7-18)
[2021-07-28 07:14] LABS: CALCIUM 7.8 mg/dL (8.5-10.1)
[2021-07-28 07:16] LABS: CREATININE 0.9 mg/dL (0.55-1.3)
[2021-07-28 07:17] LABS: PHOSPHOROUS 2.4 mg/dL (2.5-4.9)
[2021-07-28] MEDS: AMIODARONE HCL 200 MG TABLET PO SCH ×2 (09:19→23:45)
[2021-07-28] MEDS ORDERED: DEXTROSE 5%-WATER - 50 ML IVPB ONE (09:52)
[2021-07-28] MEDS ORDERED: cefTRIAXone SODIUM 1 GM VIAL ONE (09:52)
[2021-07-28] MEDS: AMMONIUM LACTATE 12% LOTION 225 GM BOTTLE TP SCH ×2 (10:15→23:45)
[2021-07-28] MEDS: ESCITALOPRAM OXALATE 10 MG TABLET PO SCH (10:16)
[2021-07-28] MEDS: NAPH,MB-DB/K PH,MBDB POWDER PACKET PO SCH ×2 (10:16→23:45)
[2021-07-28] MEDS: CEFTRIAXONE 1 GM in DEXTROSE 5%-WATER - 50 ML IVPB SCH (10:16)
[2021-07-28] MEDS ORDERED: NAPH,MB-DB/K PH,MBDB POWDER PACKET PO SCH (14:00)
[2021-07-28] MEDS: ATORVASTATIN CA 20 MG TABLET (FP) PO SCH (23:45)
[2021-07-29] MEDS: METOPROLOL TARTRATE 50 MG TABLET (FP) PO SCH ×3 (06:12→21:12)
[2021-07-29] MEDS: INSULIN SLIDING SCALE (NOVOLOG) 1 VIAL SQ SCH ×2 (06:13→11:19)
[2021-07-29 07:42] LABS: INR 2.11 (0.83-1.09); PROTHROMBIN TIME (PATIENT) 23.8 SEC (9.7-13.0)
[2021-07-29 07:45] LABS: BASO % 0.3 % (0-2.0); EOS % 1.2 % (0-4.5); HEMATOCRIT 32.1 % (35.4-49); HEMOGLOBIN 10.6 GM/dL (11.7-16.9); MCH 31.8 pg (25.7-33.7); MCHC 32.9 g/dl (32.0-35.9); MEAN CELL VOLUME 96.5 fl (80-96); MEAN PLT VOLUME 6.5 fl (7.5-11.1); MONO % 5.3 % (3.8-10.2); NEUT % 86.2 % (42.8-82.8); PLATELET COUNT 217 10^3/uL (134-434); RBC 3.33 M/mm3 (4.00-5.60); RDW 17.7 % (11.9-15.9); WHITE BLOOD COUNT 7.7 K/mm3 (4.0-10.0)
[2021-07-29 08:09] LABS: BLOOD UREA NITROGEN 10.7 mg/dL (7-18)
[2021-07-29 08:11] LABS: CALCIUM 7.9 mg/dL (8.5-10.1); MAGNESIUM 2.2 mg/dL (1.8-2.4)
[2021-07-29 08:13] LABS: CREATININE 0.8 mg/dL (0.55-1.3); PHOSPHOROUS 2.9 mg/dL (2.5-4.9)
[2021-07-29] MEDS ORDERED: cefTRIAXone SODIUM 1 GM VIAL ONE (09:12)
[2021-07-29] MEDS ORDERED: DEXTROSE 5%-WATER - 50 ML IVPB ONE (09:12)
[2021-07-29] MEDS: AMIODARONE HCL 200 MG TABLET PO SCH ×2 (09:34→21:12)
[2021-07-29] MEDS: AMMONIUM LACTATE 12% LOTION 225 GM BOTTLE TP SCH ×2 (09:35→21:15)
[2021-07-29] MEDS: CEFTRIAXONE 1 GM in DEXTROSE 5%-WATER - 50 ML IVPB SCH (09:35)
[2021-07-29] MEDS: ESCITALOPRAM OXALATE 10 MG TABLET PO SCH (09:35)
[2021-07-29] MEDS ORDERED: AMIODARONE HCL 200 MG TABLET PO SCH (10:00)
[2021-07-29] MEDS: ACETAMINOPHEN 325 MG TABLET (FP) PO PRN ×2 (12:49→17:52)
[2021-07-29] MEDS: ATORVASTATIN CA 20 MG TABLET (FP) PO SCH (21:12)
[2021-07-30] MEDS: ACETAMINOPHEN 325 MG TABLET (FP) PO PRN ×3 (05:53→18:03)
[2021-07-30] MEDS: METOPROLOL TARTRATE 50 MG TABLET (FP) PO SCH ×3 (05:54→22:35)
[2021-07-30 06:53] LABS: INR 1.82 (0.83-1.09); PROTHROMBIN TIME (PATIENT) 21.4 SEC (9.7-13.0)
[2021-07-30 07:00] LABS: BLOOD UREA NITROGEN 9.5 mg/dL (7-18)
[2021-07-30 07:01] LABS: MAGNESIUM 2.2 mg/dL (1.8-2.4)
[2021-07-30 07:04] LABS: CREATININE 0.8 mg/dL (0.55-1.3)
[2021-07-30 07:23] LABS: BASO % 0.3 % (0-2.0); EOS % 0.8 % (0-4.5); HEMATOCRIT 33.2 % (35.4-49); HEMOGLOBIN 11.1 GM/dL (11.7-16.9); LYMPH % 4.5 % (8-40); MCH 32.6 pg (25.7-33.7); MCHC 33.4 g/dl (32.0-35.9); MEAN CELL VOLUME 97.9 fl (80-96); MEAN PLT VOLUME 6.8 fl (7.5-11.1); MONO % 4.7 % (3.8-10.2); NEUT % 89.7 % (42.8-82.8); PLATELET COUNT 244 10^3/uL (134-434); RBC 3.39 M/mm3 (4.00-5.60); RDW 17.8 % (11.9-15.9); WHITE BLOOD COUNT 9.3 K/mm3 (4.0-10.0)
[2021-07-30] MEDS ORDERED: DEXTROSE 5%-WATER - 50 ML IVPB ONE (10:24)
[2021-07-30] MEDS ORDERED: cefTRIAXone SODIUM 1 GM VIAL ONE (10:24)
[2021-07-30] MEDS: APIXABAN 5 MG TABLET PO SCH ×2 (10:31→22:36)
[2021-07-30] MEDS: ESCITALOPRAM OXALATE 10 MG TABLET PO SCH (10:31)
[2021-07-30] MEDS: AMMONIUM LACTATE 12% LOTION 225 GM BOTTLE TP SCH ×2 (10:32→22:36)
[2021-07-30] MEDS: CEFTRIAXONE 1 GM in DEXTROSE 5%-WATER - 50 ML IVPB SCH (10:32)
[2021-07-30] MEDS: AMIODARONE HCL 200 MG TABLET PO SCH ×2 (10:32→22:35)
[2021-07-30] MEDS: ATORVASTATIN CA 20 MG TABLET (FP) PO SCH (22:35)
[2021-07-30] MEDS: NYSTATIN 100,000 UNIT/GM TOPICAL CREAM 15 GM TUBE TP SCH (22:36)
[2021-07-31] MEDS: ACETAMINOPHEN 325 MG TABLET (FP) PO PRN ×3 (06:23→19:30)
[2021-07-31 07:07] LABS: BASO % 0.3 % (0-2.0); EOS % 1.1 % (0-4.5); HEMOGLOBIN 11.1 GM/dL (11.7-16.9); MCH 32.8 pg (25.7-33.7); MCHC 33.5 g/dl (32.0-35.9); MEAN PLT VOLUME 6.8 fl (7.5-11.1); MONO % 4.4 % (3.8-10.2); NEUT % 84.2 % (42.8-82.8); PLATELET COUNT 237 10^3/uL (134-434); RBC 3.37 M/mm3 (4.00-5.60); RDW 17.6 % (11.9-15.9); WHITE BLOOD COUNT 9.3 K/mm3 (4.0-10.0)
[2021-07-31 07:31] LABS: CALCIUM 7.8 mg/dL (8.5-10.1)
[2021-07-31 07:32] LABS: BLOOD UREA NITROGEN 8.6 mg/dL (7-18)
[2021-07-31 07:35] LABS: CREATININE 0.8 mg/dL (0.55-1.3); INR 2.71 (0.83-1.09); PROTHROMBIN TIME (PATIENT) 30.7 SEC (9.7-13.0)
[2021-07-31 07:37] LABS: PHOSPHOROUS 2.7 mg/dL (2.5-4.9)
[2021-07-31] MEDS ORDERED: cefTRIAXone SODIUM 1 GM VIAL ONE (08:36)
[2021-07-31] MEDS ORDERED: DEXTROSE 5%-WATER - 50 ML IVPB ONE (08:36)
[2021-07-31] MEDS ORDERED: PT OWN MED DRAWER 7, Y5N ONE (08:37)
[2021-07-31] MEDS: ESCITALOPRAM OXALATE 10 MG TABLET PO SCH (09:31)
[2021-07-31] MEDS: APIXABAN 5 MG TABLET PO SCH (09:31)
[2021-07-31] MEDS: MULTIVITAMINS (DAILY MVI) TABLET (FP) PO SCH (09:31)
[2021-07-31] MEDS: CEFTRIAXONE 1 GM in DEXTROSE 5%-WATER - 50 ML IVPB SCH (09:31)
[2021-07-31] MEDS: METOPROLOL TARTRATE 50 MG TABLET (FP) PO SCH ×2 (09:31→22:43)
[2021-07-31] MEDS: AMMONIUM LACTATE 12% LOTION 225 GM BOTTLE TP SCH ×2 (09:32→22:43)
[2021-07-31] MEDS: AMIODARONE HCL 200 MG TABLET PO SCH ×2 (09:33→22:42)
[2021-07-31] MEDS: NYSTATIN 100,000 UNIT/GM TOPICAL CREAM 15 GM TUBE TP SCH ×2 (09:33→22:43)
[2021-07-31] MEDS ORDERED: METOPROLOL TARTRATE 50 MG TABLET (FP) PO SCH (11:20)
[2021-07-31] MEDS ORDERED: METOPROLOL TARTRATE 50 MG TABLET (FP) PO ONE ×2 (11:20→13:45)
[2021-07-31] MEDS ORDERED: dilTIAZem HCL 60 MG TABLET PO SCH ×2 (12:01→22:00)
[2021-07-31] MEDS: ATORVASTATIN CA 20 MG TABLET (FP) PO SCH (22:40)
[2021-08-01] MEDS: ACETAMINOPHEN 325 MG TABLET (FP) PO PRN ×3 (01:27→13:34)
[2021-08-01] MEDS: AMOX TR/POT CLAV 500MG/125MG TABLETS (FP) PO SCH ×2 (05:39→13:34)
[2021-08-01 07:09] LABS: BASO % 0.9 % (0-2.0); EOS % 0.7 % (0-4.5); HEMATOCRIT 33.9 % (35.4-49); HEMOGLOBIN 11.5 GM/dL (11.7-16.9); LYMPH % 4.4 % (8-40); MCH 32.9 pg (25.7-33.7); MCHC 33.9 g/dl (32.0-35.9); MEAN PLT VOLUME 6.4 fl (7.5-11.1); PLATELET COUNT 261 10^3/uL (134-434); RBC 3.49 M/mm3 (4.00-5.60); RDW 17.4 % (11.9-15.9); WHITE BLOOD COUNT 10.4 K/mm3 (4.0-10.0)
[2021-08-01 07:15] LABS: INR 2.33 (0.83-1.09); PROTHROMBIN TIME (PATIENT) 27.5 SEC (9.7-13.0)
[2021-08-01 07:27] LABS: CALCIUM 8.1 mg/dL (8.5-10.1)
[2021-08-01 07:31] LABS: CREATININE 0.7 mg/dL (0.55-1.3)
[2021-08-01 10:04] VITALS: BP 132/86; PULSE 108; TEMP 97.8
[2021-08-01] MEDS: AMMONIUM LACTATE 12% LOTION 225 GM BOTTLE TP SCH (10:22)
[2021-08-01] MEDS: ESCITALOPRAM OXALATE 10 MG TABLET PO SCH (10:22)
[2021-08-01] MEDS: MULTIVITAMINS (DAILY MVI) TABLET (FP) PO SCH (10:22)
[2021-08-01] MEDS: NYSTATIN 100,000 UNIT/GM TOPICAL CREAM 15 GM TUBE TP SCH (10:22)
[2021-08-01] MEDS: AMIODARONE HCL 200 MG TABLET PO SCH (10:22)
[2021-08-01] MEDS: METOPROLOL TARTRATE 50 MG TABLET (FP) PO SCH (10:22)
[2021-08-03] MEDS ORDERED: AMIODARONE HCL 200 MG TABLET PO SCH (10:00)
== END 2021-08-01 14:59 | DRG 193 ==
LOC: JER 11:40 → JERBED 17:39 → J4S 21:01 → J4W 07-24 14:51
PROVIDERS: ADMIT Internal Medicine; ATTEND Internal Medicine
DX: J18.9 Pneumonia, unspecified organism (principal); G93.41 Metabolic encephalopathy; I48.20 Chronic atrial fibrillation, unspecified; I24.8 Other forms of acute ischemic heart disease; J90 Pleural effusion, not elsewhere classified; N17.9 Acute kidney failure, unspecified; E87.2 Acidosis; L97.909 Non-pressure chronic ulcer of unspecified part of unspecified lower leg with unspecified severity; L03.115 Cellulitis of right lower limb; L03.116 Cellulitis of left lower limb; D68.32 Hemorrhagic disorder due to extrinsic circulating anticoagulants; N39.0 Urinary tract infection, site not specified; I50.20 Unspecified systolic (congestive) heart failure; N18.9 Chronic kidney disease, unspecified; E11.9 Type 2 diabetes mellitus without complications; Z95.1 Presence of aortocoronary bypass graft; B35.3 Tinea pedis; I12.9 Hypertensive chronic kidney disease with stage 1 through stage 4 chronic kidney disease, or unspecified chronic kidney disease; I25.119 Atherosclerotic heart disease of native coronary artery with unspecified angina pectoris; B96.4 Proteus (mirabilis) (morganii) as the cause of diseases classified elsewhere
CPT/HCPCS: 36415; 70450-TC; 71045-TC-FY; 72125-TC; 73630-TC-RT-FY; 73721-RT-TC; 76775-TC; 80048; 80053; 80061; 81003; 82550; 82553; 82962; 83036; 83605; 83735; 84100; 84439; 84443; 84484; 85025; 85610; 85651; 85730; 87040; 87086; 93005; 93010; 97116-GP; 97162-GP; 99285-25; C9803; J0282; U0003; U0005